=== PATIENT | male | born 1960 | race African-American/Black ===

== ENCOUNTER 2019-08-18 12:05 | Inpatient (IN) | payer BC ==
[2019-08-18] MEDS ORDERED: MORPHINE 4 MG/ML SYR ONE (12:39)
[2019-08-18] MEDS ORDERED: NA CHLORIDE 0.9% 1,000 ML ONE (12:39)
[2019-08-18] MEDS ORDERED: ONDANSETRON 4 MG/2 ML VIAL ONE (12:39)
[2019-08-18 12:42] LABS: Absolute Lymphocytes (CBC) 1.9 K/uL (0.7-4.9); Basophils % 0.4 % (0-1.3); Hematocrit 48.8 % (39.6-49.0); Lymphocytes % 18.9 % (15.3-44.8); MPV 9.6 fL (7.6-11.3); RBC Red Blood Cell Count 5.84 M/uL (4.33-5.43)
--- NOTE | 2019-08-18 12:42 | EDPHYS ---
Physician Documentation [facility] Name: Cecil Merrill Jr Age: 59 yrs Sex: Male : 1960 Arrival Date: 08/18/2019 Time: 12:09 Bed 5 Private MD: Derrick Miles V ED Physician Edis Anglin HPI: 08/17 12:31 This 59 yrs old Black Male presents to ER via Ambulatory with complaints of Chest Pain, torri Chest Tightness. 12:31 The patient or guardian reports chest pain that is located primarily in the anterior torri chest wall, bilaterally. Onset: this morning. The pain does not radiate. Associated signs and symptoms: Pertinent positives: shortness of breath. The chest pain is described as a pressure. Modifying factors: The symptoms are alleviated by nothing. the symptoms are aggravated by nothing. Severity of pain: At its worst the pain was mild in the emergency department the pain has improved mildly. The patient has experienced similar episodes in the past, a few times. Historical: - Allergies: 12:16 No Known Allergies; sv - PMHx: 12:16 Diabetes - NIDDM; Hypertension; Myocardial infarction; sv - PSHx: 12:16 None; cardiac stents; sv - Family history:: not pertinent. ROS: 12:31 Constitutional: Negative for fever, chills, and weight loss, Eyes: Negative for injury, torri pain, redness, and discharge, ENT: Negative for injury, pain, and discharge, Neck: Negative for injury, pain, and swelling, Respiratory: Negative for shortness of breath, cough, wheezing, and pleuritic chest pain, Abdomen/GI: Negative for abdominal pain, nausea, vomiting, diarrhea, and constipation, Back: Negative for injury and pain, : Negative for injury, bleeding, discharge, and swelling, MS/Extremity: Negative for injury and deformity, Skin: Negative for injury, rash, and discoloration, Neuro: Negative for headache, weakness, numbness, tingling, and seizure. 12:31 Cardiovascular: Positive for chest pain. Exam: 12:31 Constitutional: This is a well developed, well nourished patient who is awake, alert, torri and in no acute distress. Head/Face: Normocephalic, atraumatic. Eyes: Pupils equal round and reactive to light, extra-ocular motions intact. Lids and lashes normal. Conjunctiva and sclera are non-icteric and not injected. Cornea within normal limits. Periorbital areas with no swelling, redness, or edema. ENT: Nares patent. No nasal discharge, no septal abnormalities noted. Tympanic membranes are normal and external auditory canals are clear. Oropharynx with no redness, swelling, or masses, exudates, or evidence of obstruction, uvula midline. Mucous membranes moist. Neck: Trachea midline, no thyromegaly or masses palpated, and no cervical lymphadenopathy. Supple, full range of motion without nuchal rigidity, or vertebral point tenderness. No Meningismus. Chest/axilla: Normal chest wall appearance and motion. Nontender with no deformity. No lesions are appreciated. Cardiovascular: Regular rate and rhythm with a normal S1 and S2. No gallops, murmurs, or rubs. Normal PMI, no JVD. No pulse deficits. Respiratory: Lungs have equal breath sounds bilaterally, clear to auscultation and percussion. No rales, rhonchi or wheezes noted. No increased work of breathing, no retractions or nasal flaring. Abdomen/GI: Soft, non-tender, with normal bowel sounds. No distension or tympany. No guarding or rebound. No evidence of tenderness throughout. Back: No spinal tenderness. No costovertebral tenderness. Full range of motion. Male : Normal genitalia with no discharge or lesions. Skin: Warm, dry with normal turgor. Normal color with no rashes, no lesions, and no evidence of cellulitis. MS/ Extremity: Pulses equal, no cyanosis. Neurovascular intact. Full, normal range of motion. Neuro: Awake and alert, GCS 15, oriented to person, place, time, and situation. Cranial nerves II-XII grossly intact. Motor strength 5/5 in all extremities. Sensory grossly intact. Cerebellar exam normal. Normal gait. Psych: Awake, alert, with orientation to person, place and time. Behavior, mood, and affect are within normal limits. Vital Signs: 12:17 BP 198 / 93; Pulse 71; Resp 24; Temp 98.7; Pulse Ox 95% ; Weight 112.04 kg; Height 5 sv ft. 8 in. (172.72 cm); 12:30 BP 180 / 86; Pulse 71; Resp 16; Pulse Ox 97% on 2 lpm NC; Pain 3/10; em 12:17 Body Mass Index 37.56 (112.04 kg, 172.72 cm) sv MDM: 12:18 Patient medically screened. torri 12:37 Data reviewed: vital signs, nurses notes, lab test result(s), EKG, radiologic studies, torri plain films. 12:38 Differential diagnosis: abnormal EKG, acute myocardial infarction, coronary artery torri disease congestive heart failure gastroesophageal reflux disease (GERD), hiatal hernia, myocarditis, pericarditis, unstable angina. HEART Score: History: Highly Suspicious (2), ECG: Significant ST-deviation (2), Age: > 45 and < 65 years (1), Risk Factors: > or = 3 Risk factors for atherosclerotic disease (2), [Hypercholesterolemia] [Hypertension] [+ Family HX] [Obesity] Total Score = 1. 12:58 The patient was not given aspirin in the Emergency Department. Patient reports taking [facility] aspirin within the past 24 hours. The patient's deep vein thrombosis risk score was calculated as follows: Total Score: 0. This patient was found to be at low risk for a deep vein thrombosis by using the Well's assessment criteria. SRIKANTH Risk Score: 1 - Three or more CAD risk factors, [Family Hx], [HTN], [Elevated Cholesterol], [DM], 1- Known CAD, 1 - ASA use in past 7 days, 1 - Recent [<24hrs] Severe Angina, 1 - ST deviation >0.5mm, TOTAL SCORE = 5. 12:59 Data interpreted: product safety technical assistant: rate is 71 beats/min, Pulse oximetry: on room air is torri 95 %. Test interpretation: by ED physician or midlevel provider: ECG, plain radiologic studies. Counseling: I had a detailed discussion with the patient and/or guardian regarding: the historical points, exam findings, and any diagnostic results supporting the discharge/admit diagnosis, the presence of at least one elevated blood pressure reading (>120/80) during this emergency department visit, lab results, radiology results, the need for further work-up and treatment in the hospital. Physician consultation: Darryl Cortez MD regarding admission, to seed analysis laboratory assistant, dr duarte. ED course: presents cp, sob, EKG STEMI, to seed analysis laboratory assistant, asp, Plavix and heparin, lasix and heparin started, gerald mera in ed , no changes, to seed analysis laboratory assistant now m guarded but stable. 08/17 12:27 Order name: Basic Metabolic Panel [facility] 08/17 12:27 Order name: CBC with Diff 08/17 12:27 Order name: LFT's [facility] 08/17 12:27 Order name: Magnesium [facility] 08/17 12:27 Order name: NT PRO-BNP [facility] 08/17 12:27 Order name: PT-INR [facility] 08/17 12:27 Order name: Troponin (emerg Dept Use Only) [facility] 08/17 12:27 Order name: XRAY Chest (1 view) [facility] 08/17 12:27 Order name: EKG; Complete Time: 12:28 [facility] 08/17 12:27 Order name: Cardiac monitoring; Complete Time: 12:35 [facility] 08/17 12:27 Order name: EKG - Nurse/Tech; Complete Time: 12:35 [facility] 08/17 12:27 Order name: IV Saline Lock; Complete Time: 12:35 [facility] 08/17 12:27 Order name: Labs collected and sent; Complete Time: 12:35 [facility] 08/17 12:27 Order name: O2 Per Protocol; Complete Time: 12:35 [facility] 08/17 12:27 Order name: O2 Sat Monitoring; Complete Time: 12:35 [facility] 08/17 12:49 Order name: NPO; Complete Time: 12:57 [facility] 08/17 12:56 Order name: CONS Physician Consult EDMS Administered Medications: 12:31 Drug: Zofran (Ondansetron) 4 mg Route: IVP; Site: right antecubital; em 13:10 Follow up: Response: No adverse reaction em 12:33 Drug: morphine 4 mg Route: IVP; Site: right antecubital; em 12:45 Follow up: Response: No adverse reaction; Marked relief of symptoms; Pain is decreased; em RASS: Alert and Calm (0) 12:43 CANCELLED (Duplicate Order): NS 0.9% 1000 ml IV at 75 ml/hr continuous torri 12:48 CANCELLED (Duplicate Order): Lovenox 1 mg/kg Sub-Q once torri 12:55 Drug: Lasix 40 mg Route: IVP; Site: right antecubital; em 13:10 Follow up: Response: No adverse reaction em 12:57 Drug: Heparin (VT-Bolus No thrombolytic) - HEParin 60 units/kg {Co-Signature: bp (Lito Garcia RN).} Route: IVP; Site: right antecubital; 13:10 Follow up: Response: No adverse reaction em 13:01 Not Given (Physician Discretion): morphine 2 mg IVP once; RASS on ADMIN: Combtv4, Very em Agttd3, Agttd2, Rstlss1, AlertClm0, Drwsy-1, Lt Sdtn-2, Mod Sdtn-3, Dp Sdtn-4, UnArsble-5 13:17 Not Given (seed analysis laboratory assistant stated they would start in seed analysis laboratory assistant): Heparin (VT Drip) 12 em units/kg/hr - (HEParin 40291 units, D5W 500 ml) IV at calculated rate Per protocol; Max initial rate 1000 units/hr Disposition: 12:38 Critical Care:. torri Disposition: 08/18/19 12:42 Hospitalization ordered by Derrick Miles for Inpatient Admission. Preliminary diagnosis are ST elevation (STEMI) myocardial infarction of anterior wall, Type 2 diabetes mellitus, Essential (primary) hypertension, Dyspnea, Systolic (congestive) heart failure. - Bed requested for Property And Supply Officer. - Status is Inpatient Admission. em - Condition is Fair. - Problem is new. - Symptoms have improved. Critical care time excluding procedures: 12:38 Critical care time: Consultation: 10 minutes. Total time: 10 minutes torri Signatures: Dispatcher [employer] Erica Orr RN RN sv Anderson, Corey, MD MD cha Munoz, Edgar, RN RN em Calderon, Audri, RN RN aa5 Lito Garcia RN bp Corrections: (The following items were deleted from the chart) 12:43 12:30 NS 0.9% 1000 ml IV at 75 ml/hr continuous ordered. torri torri 12:45 12:42 Hospitalization Ordered by Derrick Miles MD for Inpatient Admission. Preliminary torri diagnosis is ST elevation (STEMI) myocardial infarction of anterior wall; Type 2 diabetes mellitus; Essential (primary) hypertension; Dyspnea. Bed requested for Property And Supply Officer. Status is Inpatient Admission. Condition is Fair. Problem is new. Symptoms have improved. torri 12:48 12:31 Lovenox 1 mg/kg Sub-Q once ordered. torri torri 13:19 12:45 08/18/2019 12:42 Hospitalization Ordered by Derrick Miles MD for Inpatient em Admission. Preliminary diagnosis is ST elevation (STEMI) myocardial infarction of anterior wall; Type 2 diabetes mellitus; Essential (primary) hypertension; Dyspnea; Systolic (congestive) heart failure. Bed requested for Property And Supply Officer. Status is Inpatient Admission. Condition is Fair. Problem is new. Symptoms have improved. torri
--- NOTE | 2019-08-18 12:42 | ER ---
Nurse's Notes [facility] Name: Cecil Merrill Jr Age: 59 yrs Sex: Male : 1960 Arrival Date: 08/18/2019 Time: 12:09 Bed 5 Private MD: Derrick Miles V Diagnosis: ST elevation (STEMI) myocardial infarction of anterior wall;Type 2 diabetes mellitus;Essential (primary) hypertension;Dyspnea;Systolic (congestive) heart failure Presentation: 08/17 12:14 Chief complaint: Patient states: midsternal chest pain, SOB, HTN today. "I felt like a sv anderson of adrenaline hit me.". Risk Assessment: Do you want to hurt yourself or someone else? Patient reports no desire to harm self or others. Onset of symptoms was August 18, 2019. 12:14 Method Of Arrival: Ambulatory sv 12:14 Acuity: KIMBER 2 sv Triage Assessment: 12:20 General: Appears distressed, uncomfortable, Behavior is cooperative, appropriate for sv age, anxious. Pain: Complains of pain in chest. Neuro: Level of Consciousness is awake, alert, obeys commands, Oriented to person, place, time, situation, Gait is steady. Cardiovascular: Reports chest pain, shortness of breath. Respiratory: Airway is patent Respiratory effort is even, labored, Respiratory pattern is symmetrical, tachypnea. Historical: - Allergies: 12:16 No Known Allergies; sv - PMHx: 12:16 Diabetes - NIDDM; Hypertension; Myocardial infarction; sv - PSHx: 12:16 None; cardiac stents; sv - Family history:: not pertinent. Screenin:25 Abuse screen: Denies threats or abuse. Nutritional screening: No deficits noted. em Tuberculosis screening: No symptoms or risk factors identified. Fall Risk None identified. Assessment: 12:25 General: Appears in no apparent distress. uncomfortable, Behavior is calm, cooperative, em appropriate for age, Denies fever. Pain: Complains of pain in chest Pain does not radiate. Pain began 0200 this morning, felt like indigestion, tried to sleep it off, took 4 baby aspirins ETIOLOGY TEACHER, denies nausea/vomiting. Neuro: Level of Consciousness is awake, alert, obeys commands, Oriented to person, place, time, situation, Appropriate for age. Cardiovascular: Reports chest pain, shortness of breath, Heart tones S1 S2 present Capillary refill < 3 seconds Patient's skin is warm and dry. Pulses are palpable in right dorsalis pedis artery and left dorsalis pedis artery Edema is absent. Respiratory: Airway is patent Respiratory effort is even, unlabored, Respiratory pattern is regular, symmetrical, Denies shortness of breath at rest. GI: Abdomen is round non-distended, Patient currently denies nausea, vomiting. Derm: Skin is intact, Skin is pink, warm \\T\\ dry. Musculoskeletal: Capillary refill < 3 seconds, Range of motion: intact in all extremities. 12:55 Reassessment: transmission inspector at bedside. em Vital Signs: 12:17 BP 198 / 93; Pulse 71; Resp 24; Temp 98.7; Pulse Ox 95% ; Weight 112.04 kg; Height 5 sv ft. 8 in. (172.72 cm); 12:30 BP 180 / 86; Pulse 71; Resp 16; Pulse Ox 97% on 2 lpm NC; Pain 3/10; em 12:17 Body Mass Index 37.56 (112.04 kg, 172.72 cm) sv ED Course: 12:09 Patient arrived in ED. ag5 12:09 Derrick Miles MD is Private Physician. ag5 12:14 Arm band placed on Patient placed in an exam room, on a stretcher, on oxygen, on sv laboratory monitor, on pulse oximetry. 12:15 Oxygen administration via nasal cannula \\T\\ 2L/min. sv 12:16 Triage completed. sv 12:18 Samir Adan, TREY is Primary Nurse. em 12:18 Edis Anglin MD is Attending Physician. torri 12:20 Inserted saline lock: 18 gauge in right antecubital area, using aseptic technique. sv Blood collected. Flushed right antecubital with 5 ml normal saline. 12:25 Patient has correct armband on for positive identification. Placed in gown. Bed in low em position. Call light in reach. Side rails up X2. hall monitor on. Pulse ox on. NIBP on. 12:36 XRAY Chest (1 view) In Process Unspecified. EDMS 12:41 Derrick Miles MD is Hospitalizing Provider. torri 13:15 No provider procedures requiring assistance completed. Patient admitted, IV remains in em place. Administered Medications: 12:31 Drug: Zofran (Ondansetron) 4 mg Route: IVP; Site: right antecubital; em 13:10 Follow up: Response: No adverse reaction em 12:33 Drug: morphine 4 mg Route: IVP; Site: right antecubital; em 12:45 Follow up: Response: No adverse reaction; Marked relief of symptoms; Pain is decreased; em RASS: Alert and Calm (0) 12:43 CANCELLED (Duplicate Order): NS 0.9% 1000 ml IV at 75 ml/hr continuous torri 12:48 CANCELLED (Duplicate Order): Lovenox 1 mg/kg Sub-Q once torri 12:55 Drug: Lasix 40 mg Route: IVP; Site: right antecubital; em 13:10 Follow up: Response: No adverse reaction em 12:57 Drug: Heparin (ME-Bolus No thrombolytic) - HEParin 60 units/kg {Co-Signature: bp (Lito Garcia RN).} Route: IVP; Site: right antecubital; 13:10 Follow up: Response: No adverse reaction em 13:01 Not Given (Physician Discretion): morphine 2 mg IVP once; RASS on ADMIN: Combtv4, Very em Agttd3, Agttd2, Rstlss1, AlertClm0, Drwsy-1, Lt Sdtn-2, Mod Sdtn-3, Dp Sdtn-4, UnArsble-5 13:17 Not Given (laborer egg producing farm stated they would start in laborer egg producing farm): Heparin (ME Drip) 12 em units/kg/hr - (HEParin 76233 units, D5W 500 ml) IV at calculated rate Per protocol; Max initial rate 1000 units/hr Outcome: 12:42 Decision to Hospitalize by Provider. torri 13:15 Admitted to Management Specialist accompanied by nurse, via stretcher, with oxygen, on monitor, with em chart, Report called to TREY Austin 13:15 Condition: stable 13:15 Instructed on the need for admit, Demonstrated understanding of instructions. 13:19 Patient left the ED. em Signatures: Dispatcher [employer] Erica Orr RN RN sv Anderson, Corey, MD MD cha Munoz, Edgar, RN RN em Yelitza Murillo ag5 Lito Garcia RN bp
[2019-08-18] MEDS ORDERED: ENOXAPARIN 100 MG/ML SYR SQ ONE (12:47)
[2019-08-18 12:48] LABS: Protime INR 0.91
--- NOTE | 2019-08-18 12:51 | RAD REPORT ---
EXAM DESCRIPTION: RAD - Chest Single View - 08/18/2019 12:36 pm CLINICAL HISTORY: CHEST PAIN Chest pain. COMPARISON: CHEST SINGLE VIEW dated 01/16/2014; CHEST SINGLE VIEW dated 01/15/2014 FINDINGS: Portable technique limits examination quality. Mild interstitial prominence is seen which may indicate mild interstitial pulmonary edema or intersti tial pneumonitis. The heart is normal in size. No displaced fractures.
[2019-08-18] MEDS ORDERED: HEPARIN 5000 UNIT/ML 1 ML VIAL ONE ×2 (12:57→13:29)
[2019-08-18] MEDS ORDERED: HEPARIN/D5W 0 UNIT/0 ML BAG IV ONE (12:57)
[2019-08-18] MEDS ORDERED: FUROSEMIDE 40 MG/4 ML VIAL ONE (12:57)
[2019-08-18] MEDS ORDERED: FENTANYL CITR 100 MCG/2 ML ONE (13:00)
[2019-08-18] MEDS ORDERED: NITROGLYCERIN 100 MCG/ML SYR (for cath lab use only) IV ONE (13:00)
[2019-08-18] MEDS ORDERED: HEPA 1000U/500MLS 2,000 UNIT/1,000 ML BAG IV ONE (13:00)
[2019-08-18] MEDS ORDERED: ATROPINE SULF 1 MG/10 ML SYR IV ONE (13:00)
[2019-08-18] MEDS ORDERED: LIDOCAINE 1% MPF 30 ML VIAL ONE (13:00)
[2019-08-18] MEDS ORDERED: NITROGLYCERIN/D5W 0 MG/0 ML BTL IV ONE (13:00)
[2019-08-18] MEDS ORDERED: MIDAZOLAM HCL 2 MG/2 ML INJ ONE (13:00)
[2019-08-18 13:04] LABS: Albumin 3.3 g/dL (3.4-5.0); Bilirubin Direct 0.1 mg/dL (0-0.2); Bilirubin Total 0.4 mg/dL (0.2-1.0); Magnesium 2.2 mg/dL (1.8-2.4); Potassium 3.3 mmol/L (3.5-5.1); Protein, Total 7.8 g/dL (6.4-8.2); Troponin (Emerg Dept Use Only) 0.14 ng/mL (0.0-0.045)
[2019-08-18] MEDS ORDERED: NICARDIPINE HCL 25 MG/10 ML IV ONE (13:29)
[2019-08-18] MEDS ORDERED: NA CHLORIDE 0.9% 0 ML ONE (13:37)
[2019-08-18] MEDS ORDERED: ONDANSETRON 4 MG/2 ML VIAL IV PRN (14:01)
[2019-08-18] MEDS ORDERED: HEPARIN/D5W 25,000 UNIT/500 ML BAG IV PRN (14:01)
[2019-08-18] MEDS ORDERED: MORPHINE 4 MG/ML SYR IV PRN (14:01)
[2019-08-18] MEDS ORDERED: ACETAMINOPHEN 325 MG TABLET PO PRN (14:08)
[2019-08-18 15:16] VITALS: BMI 37.6
[2019-08-18] MEDS: FUROSEMIDE 40 MG/4 ML VIAL IV SCH (17:00)
[2019-08-18] MEDS ORDERED: D50W 25 GM/50 ML SYRINGE/VIAL IV PRN (17:03)
[2019-08-18] MEDS: METOPROLOL TAR 25 MG TAB PO SCH (17:24)
[2019-08-18] MEDS ORDERED: NITROGLYCERIN 1 GM PKT TD SCH (18:00)
[2019-08-18] MEDS: NEBIVOLOL HCL 20 MG TABLET PO SCH (20:47)
[2019-08-18] MEDS ORDERED: ASPIRIN EC 81 MG TAB PO SCH (21:00)
[2019-08-18] MEDS ORDERED: CLOPIDOGREL 75 MG TABLET PO SCH (21:00)
[2019-08-18] MEDS ORDERED: LOSARTAN POTASSIUM 50 MG TABLET PO SCH (21:00)
[2019-08-19] MEDS: FUROSEMIDE 40 MG/4 ML VIAL IV SCH ×2 (00:42→08:50)
[2019-08-19] MEDS: METOPROLOL TAR 25 MG TAB PO SCH (05:12)
[2019-08-19 05:39] LABS: Absolute Lymphocytes (CBC) 1.3 K/uL (0.7-4.9); Basophils % 0.4 % (0-1.3); Hematocrit 45.3 % (39.6-49.0); Lymphocytes % 15.4 % (15.3-44.8); MPV 10.2 fL (7.6-11.3); RBC Red Blood Cell Count 5.48 M/uL (4.33-5.43)
[2019-08-19 05:53] LABS: Potassium 2.9 mmol/L (3.5-5.1)
[2019-08-19] MEDS ORDERED: POTASSIUM CL SA 10 MEQ TAB PO ONE (06:30)
[2019-08-19] MEDS ORDERED: NA CHLORIDE 0.9% 250 ML ONE (06:49)
[2019-08-19] MEDS ORDERED: KCL 20 MEQ/100 mL IVPB 20 MEQ/100 ML BAG IV SCH (07:00)
[2019-08-19] MEDS: NEBIVOLOL HCL 20 MG TABLET PO SCH (08:51)
[2019-08-19] MEDS ORDERED: AMLODIPINE 10 MG TAB PO SCH (09:00)
[2019-08-19] MEDS ORDERED: SYNJARDY PO SCH (09:00)
[2019-08-19] MEDS ORDERED: CLOPIDOGREL 75 MG TABLET PO SCH (09:00)
[2019-08-19] MEDS ORDERED: ASPIRIN EC 81 MG TAB PO SCH (09:00)
--- NOTE | 2019-08-19 09:01 | RAD REPORT ---
EXAM DESCRIPTION: Yuliet Single View08/19/2019 6:47 am CLINICAL HISTORY: Chest pain COMPARISON: August 17 FINDINGS: Mild bilateral pulmonary opacities have resolved. The heart is normal size IMPRESSION: No acute abnormalities displayed
[2019-08-19 11:38] VITALS: O2SAT 97
[2019-08-19 15:21] VITALS: BP 129/67; TEMP 98.4
[2019-08-19] MEDS ORDERED: POTASSIUM CL SA 10 MEQ TAB PO SCH (21:00)
--- NOTE | 2019-08-19 23:07 | HP ---
Date of Admission: 08/18/2019 This is a 23-hour summary. Chief Complaint: Shortness of breath. History Of Present Illness: Patient is 59-year-old gentleman with diabetes, morbid obesity, high blo od pressure, recurrent coronary artery disease with a stent placement in 2013, comes in with worsenin g shortness of breath over the last 3-4 days. He has not been eating properly. He eats whatever he gets at store down which could be any of the fast food or junk food including [place] food or Beninese fries or pizzas. All these foods are going to give him heavy salt load with 1 serving and he may end up in heart failure. He understands this very well now and hopefully will try to eat properly. I radha hassan been advising him to eat properly for the last few years. He ends up in hospital with worsening shortness of breath and PND for last 3-4 days. He has some chest heaviness. Troponin was slightly h igh. He was taken for an ordered angiogram, which was negative for any new findings. He had a stent in 1 artery, LAD which is patent. Past Medical History: As described above. Surgical History: Stent in the past 2013. Family History: High blood pressure, diabetes, CVA and some cancer of unknown origin, he is not awar e of. Social History: Nonsmoker Medications: Listed medications are amlodipine 10 mg once a day, Atorvastatin 40 mg once a day, Byst olic 20 mg once a day, Plavix 75 mg once a day. He is on Humalog sliding scale. He is on Synjardy 1 2.5-1000 XR once a day, Toujeo insulin 40 units subcu b.i.d. Physical Examination: Vital Signs: His blood pressure is 150/80. Chest: Clear. Heart: Regular. Abdomen: No guarding, no rebound, no rigidity. He is moderately obese. Extremities: No signs of edema now day after receiving Lasix IV. Laboratory Data: On lab examination, I do not have an access to the computer right now from the [place] [employer] is malfunctioning for last 24 hours at my office and home, so lab examination noted akua elizabeth he was in the hospital do not have exact numbers currently. Assessment And Plannin.Diastolic congestive heart failure. Echocardiogram to be done today. He is stable enough to be d ischarged home. He will be discharged home on Lasix 40 mg once a day. Potassium 20 mEq once a day. He is already on a small dose of diuretic with losartan, which I will continue. 2.He has some anxiety. Also, he says was having anxiety last night and wakes him up. Put him on Zo loft 25 mg once a day for anxiety. 3.Diabetes. He comes to office every 3 months for a followup on diabetes. His visit is about overd ue for last week or so. When he comes out of hospital, he will be seen in office within a week via t [facility]. ANOOP/ALBERTO Voice ID: [id number]
[2019-08-20] MEDS ORDERED: FUROSEMIDE 40 MG/4 ML VIAL IV SCH (09:00)
--- NOTE | 2019-08-20 13:13 | EKG ---
Test Date: 2019-08-18 Test Time: 12:24:36 Social Service Director: WEI MEASUREMENT RESULTS: Intervals: Rate: 73 MO: 140 QRSD: 86 QT: 430 QTc: 473 Bradford: P: 61 MO: 140 QRS: -34 T: 206 INTERPRETIVE STATEMENTS: Normal sinus rhythm Possible Left atrial enlargement Left axis deviation Left ventricular hypertrophy with repolarization abnormality Abnormal ECG Compared to ECG 01/17/2014 07:28:19 Left ventricular hypertrophy now present Early repolarization now present Electronically Signed On 08-20-19 13:13:28 CDT by Darryl Cortez
--- NOTE | 2019-08-21 10:03 | ECHO ---
HEIGHT: 5 ft 8 in WEIGHT: 247 lb 8 oz DATE OF STUDY: 08/19/[address]: Darryl Cortez MD 2-DIMENSIONAL: YES M.MODE: YES DOPPLER: YES COLOR FLOW: YES TDS: PORTABLE: DEFINITY: BUBBLE STUDY: DIAGNOSIS: ANTERIOR MYOCARDIAL INFARCTION, CONGESTIVE HEART FAILURE CARDIAC HISTORY: CATHERIZATION: YES SURGERY: NO PROSTHETIC VALVE: NO PACEMAKER: NO MEASUREMENTS (cm) DIASTOLIC (NORMALS) SYSTOLIC (NORMALS) IVSd 1.4 (0.6-1.2) LA Diam 4.0 (1.9-4.0) LVEF 63% LVIDd 4.7 (3.5-5.7) LVIDs 3.1 (2.0-3.5) %FS 34% LVPWd 1.7 (0.6-1.2) Ao Diam 2.7 (2.0-3.7) 2 DIMENSIONAL ASSESSMENT: RIGHT ATRIUM: NORMAL LEFT ATRIUM: ENLARGED RIGHT VENTRICLE: NORMAL LEFT VENTRICLE: MODERATE CONCENTRIC LEFT VENTRICULAR HYPERTROPHY TRICUSPID VALVE: NORMAL MITRAL VALVE: NORMAL PULMONIC VALVE: NORMAL AORTIC VALVE: NORMAL PERICARDIAL EFFUSION: AORTIC ROOT: NORMAL LEFT VENTRICULAR WALL MOTION: NORMAL LEFT VENTRICULAR EJECTION FRACTION 55-60 %. SIGNIFICANT DIASTOLIC DYSFUNCTION. ELEVATED FILLING PRESSURE. DOPPLER/COLOR FLOW: COMMENTS: NORMAL LEFT VENTRICULAR EJECTION FRACTION 55-60%. SIGNIFICANT LEFT VENTRICULAR DIASTOLIC DYSFUNCTION. ELEVATED LEFT FILLING PRESSURE. MODERATE CONCENTRIC LEFT VENTRICULAR HYPERTROPHY. TECHNOLOGIST: DEXTER SHAW
--- NOTE | 2019-08-22 20:42 | CON ---
Date of Consultation: 08/18/2019 Chief Complaint: Chest pain. History Of Present Illness: 59-year-old male with history of diabetes; hypertension; coronary artery disease, status post LAD stent placement; who presented to the emergency room with crushing chest pa in, left sided, while he was shopping at [employer]. Pain is severe, going to his neck and uppe r extremities and felt severely shortness of breath that he could not keep walking, so he went home, tried to rest, although did not get well, so he presented to the emergency room. In the emergency ro om, he had an EKG that was concerning for possible acute ST elevation myocardial infarction. I was n otified and saw the patient immediately in the emergency room and decided to activate the open hearth furnace laborer to perform emergent coronary angiogram. I saw the patient by bedside and appeared to be uncomfortable due to shortness of breath; however, the chest pain has completely resolved by that time. Past Medical History: As mentioned in the HPI. Medications: Refer reconciliation sheet for detailed list. Allergies: NO KNOWN DRUG ALLERGIES. Social History: He does not smoke or drink. Does not use any drugs. Family History: No premature coronary artery disease or cancer. Past Surgical History: He had a cardiac stent placement to the LAD few years back. Review of Systems: All systems reviewed. They were negative except above mentioned in HPI. Physical Examination: Vital Signs: Blood pressure was 174/80, breathing at 22 breaths per minute, satting 96% with 2 L, he art rate was 75 beats per minute. General: This is a middle aged, obese male in no apparent distress. Head and Neck: Pupils are equal and reactive to light. Intact eye movements. Positive JVD elevatio n. No cervical lymphadenopathy. Neck is supple. Thyroid is not enlarged. Lungs: Crackles in both bases. No accessory muscle use or muscle retraction. Heart: Regular rate and rhythm with audible S3. Abdomen: Soft, nontender. Bowel sounds positive. No organomegaly . Extremities: No edema, clubbing, or cyanosis. Intact pulses. Skin: No rashes or lesions. Neurologic: Alert, awake, oriented x3. No acute focal deficit appreciated. Investigations: Troponin was 0.14. Potassium 3.3, creatinine is 1.24. Chest x-ray; pulmonary edema. EKG; slight elevation of ST segment in the lead V1 and V2 with LVH and abnormality. Assessment And Plan And Recommendations: 1.Acute chest pain with dynamic EKG changes and elevated troponin and acute heart failure. __ the open hearth furnace laborer for emergent coronary angiogram and concerns for ST elevation myocardial infarction. Continue IV heparin, Plavix, and aspirin and start the patient on nitroglycerin drip for better bloo d pressure control. 2.Acute congestive heart failure. Obtain an echocardiogram and control blood pressure with IV nitro glycerin and start IV Lasix. 3.Hypertensive crisis with acute heart failure. This could be part of his presentation as main etio logy and can recommend management of this hypertensive crisis with IV nitroglycerin and will observe the patient closely in ICU post cardiac catheterization. Thank you for the consultation. /ALBERTO Voice ID: [id number] Report ID: [id number]
== END 2019-08-19 14:50 | disposition home or self-care (01) | DRG 280 ==
LOC: ER 12:05 → ERHOLD 12:52 → 3RD-ICU 14:18
PROVIDERS: ADMIT Internal Medicine; ATTEND Internal Medicine
PROC: 4A023N7 Measurement of Cardiac Sampling and Pressure, Left Heart, Percutaneous Approach (ICD-10-PCS; principal; 2019-08-18)
PROC: B2111ZZ Fluoroscopy of Multiple Coronary Arteries using Low Osmolar Contrast (ICD-10-PCS; 2019-08-18)
PROC: B2151ZZ Fluoroscopy of Left Heart using Low Osmolar Contrast (ICD-10-PCS; 2019-08-18)
DX: I21.09 ST elevation (STEMI) myocardial infarction involving other coronary artery of anterior wall (principal); I50.31 Acute diastolic (congestive) heart failure; I16.9 Hypertensive crisis, unspecified; E11.9 Type 2 diabetes mellitus without complications; Z68.37 Body mass index [BMI] 37.0-37.9, adult; I25.10 Atherosclerotic heart disease of native coronary artery without angina pectoris; Z95.5 Presence of coronary angioplasty implant and graft; Z79.4 Long term (current) use of insulin; Z79.02 Long term (current) use of antithrombotics/antiplatelets; Z79.899 Other long term (current) drug therapy; F41.9 Anxiety disorder, unspecified; I25.2 Old myocardial infarction; I11.0 Hypertensive heart disease with heart failure; E66.01 Morbid (severe) obesity due to excess calories
CPT/HCPCS: 36415; 71045; 80048; 80076; 82947; 83735; 83880; 84132; 84484; 85025; 85610; 93005; 93306; 93458; 96374; 96375; 99285; C1893; J0583; J1644; J1650; J1940; J2250; J2405; J3010; J7030

== ENCOUNTER 2020-04-14 23:55 | Observation (INO) | payer BC ==
--- OUTSIDE RECORDS SUMMARY | 2020-04-14 23:58 | XMS REPORT | Clinical Summary ---
:1960 Author Organization [facility] Address [address] [place] [address] Care Team Providers Name Role Phone Derrick Miles MD Primary Care Provider Allergies No Known Active Allergies Medications Medication Sig Dispensed Refills Start Date End Date Status amLODIPine (NORVASC) Take 10 mg by 1 12/29/2016 Active 10 mg tablet mouth once daily. atorvastatin (LIPITOR) 0 01/19/2017 Active 40 MG tablet clopidogrel (PLAVIX) 0 01/19/2017 Active 75 mg tablet glimepiride (AMARYL) 4 Take 4 mg by mouth 0 10/30/19 17 Active MG tablet once daily. TOUJEO SOLOSTAR 300 INJECT UNDER THE 2 11/05/2016 Active unit/mL (1.5 mL) SKIN 54 UNITS insulin pen BEFORE SLEEP OR IN THE MORNING BEFORE BREAKFAST HUMALOG KWIKPEN 100 INJECT UNDER THE 5 12/29/2016 Active unit/mL injection pen SKIN 10 UNITS 10 MINUTES BEFORE MEALS losartan-hydrochloroth Take 1 tablet by 0 01/16/2017 Active iazide (HYZAAR) mouth once daily. 100-12.5 mg per tablet metoprolol succinate Take 200 mg by 2 12/29/2016 Active XL (TOPROL-XL) 200 mg mouth once daily. 24 hr tablet Active Problems No known active problems Surgical History Surgery Date Site/Laterality Comments CARDIAC SURGERY Medical History Medical History Date Comments Coronary artery disease Myocardial infarction (HCC) Diabetes mellitus (HCC) Hypertension Family History Medical History Relation Name Comments Cancer Father Brian Diabetes Father Brian Relation Name Status Comments Father Brian Social History Tobacco Use Types Packs/Day Years Used Date Never Smoker Alcohol Use Drinks/Week oz/Week Comments No Sex Assigned at Date Recorded Not on file Last Filed Vital Signs Not on file Plan of Treatment Health Maintenance Due Date Last Done Comments COVID-19 VACCINE (#1) 1978 COLONOSCOPY SCREENING 2012 SHINGLES VACCINES (#1) 2012 INFLUENZA VACCINE 11/18/2019 Results Not on fileafter 04/14/2019 Guarantor Name Account Type Relation to Date of Phone Bill ing Patient Address Cecil Merrill Personal/Family Self 1960 [address] ([address]) [place] [address] Advance Directives For more information, please contact: [phone] Type Date Recorded Patient Psychodramatist Explanati on Advance Directives, Living Will and Medical Power of Advertising Supervisor
[2020-04-15 01:11] LABS: Absolute Lymphocytes (CBC) 1.8 K/uL (0.7-4.9); Basophils % 2.2 % (0-1.3); Hematocrit 48.5 % (39.6-49.0); Lymphocytes % 23.8 % (15.3-44.8); MPV 9.9 fL (7.6-11.3); RBC Red Blood Cell Count 5.82 M/uL (4.33-5.43)
[2020-04-15 01:12] LABS: Protime INR 0.88
[2020-04-15 01:44] LABS: ALT/SGPT 55 U/L (12-78); AST/SGOT 53 U/L (15-37); Albumin 2.9 g/dL (3.4-5.0); Alkaline Phosphatase 96 U/L (45-117); BUN Blood Urea Nitrogen 18 mg/dL (7-18); Bicarbonate 28 mmol/L (21-32); Bilirubin Direct < 0.1 mg/dL (0-0.2); Bilirubin Total 0.3 mg/dL (0.2-1.0); CKMB Creatine Kinase MB 6.5 ng/mL (0.3-3.6); Creatine Phosphokinase 278 U/L (39-308); Glucose Level 182 mg/dL (74-106); Lipase 223 U/L (73-393); Magnesium 2.5 mg/dL (1.8-2.4); NT PRO-BNP 2268 pg/mL (<125); Potassium 3.8 mmol/L (3.5-5.1); Protein, Total 7.6 g/dL (6.4-8.2); Sodium Level 141 mmol/L (136-145); Troponin (Emerg Dept Use Only) 0.13 ng/mL (0.0-0.045)
[2020-04-15 02:34] LABS: Urine Blood 2+ (NEG); Urine Glucose 2+ (NEG); Urine Protein 3+ (NEG); Urine pH 7.5 (5.0-7.0)
--- NOTE | 2020-04-15 05:34 | EDPHYS ---
Physician Documentation [facility] Name: Cecil Merrill Jr Age: 59 yrs Sex: Male : 1960 Arrival Date: 04/14/2020 Time: 23:56 Bed 4 Private MD: Derrick Miles V ED Physician Abhijeet Beauchamp HPI: 04/15 01:07 This 59 yrs old Black Male presents to ER via Ambulatory with complaints of Shortness tw4 Of Breath. 01:07 The patient has shortness of breath at rest. Onset: The symptoms/episode began/occurred tw4 today. Duration: The symptoms are intermittent. The patient's shortness of breath has no apparent modifying factors. Associated signs and symptoms: Pertinent positives: chest pain, Pertinent negatives:. Severity of symptoms: At their worst the symptoms were moderate in the emergency department the symptoms have resolved. The patient has not experienced similar symptoms in the past. Historical: - Allergies: 00:30 No Known Allergies; dm5 - PMHx: 06:18 Myocardial infarction; Hypertension; Diabetes - NIDDM; ea - PSHx: 06:18 cardiac stents; ea - Immunization history:: Adult Immunizations up to date. - Social history:: Smoking status: unknown. ROS: 01:07 Constitutional: Negative for fever, chills, and weight loss, Eyes: Negative for injury, tw4 pain, redness, and discharge, Cardiovascular: Negative for chest pain, palpitations, and edema, Abdomen/GI: Negative for abdominal pain, nausea, vomiting, diarrhea, and constipation, Back: Negative for injury and pain, MS/Extremity: Negative for injury and deformity, Skin: Negative for injury, rash, and discoloration, Neuro: Negative for headache, weakness, numbness, tingling, and seizure. 01:07 Respiratory: Positive for shortness of breath, Negative for cough, dyspnea on exertion, hemoptysis, orthopnea, pleurisy. Exam: 01:07 Constitutional: This is a well developed, well nourished patient who is awake, alert, tw4 and in no acute distress. Head/Face: Normocephalic, atraumatic. Chest/axilla: Normal chest wall appearance and motion. Nontender with no deformity. No lesions are appreciated. Cardiovascular: Regular rate and rhythm with a normal S1 and S2. No gallops, murmurs, or rubs. Normal PMI, no JVD. No pulse deficits. Respiratory: Lungs have equal breath sounds bilaterally, clear to auscultation and percussion. No rales, rhonchi or wheezes noted. No increased work of breathing, no retractions or nasal flaring. Abdomen/GI: Soft, non-tender, with normal bowel sounds. No distension or tympany. No guarding or rebound. No evidence of tenderness throughout. Skin: Warm, dry with normal turgor. Normal color with no rashes, no lesions, and no evidence of cellulitis. MS/ Extremity: Pulses equal, no cyanosis. Neurovascular intact. Full, normal range of motion. Neuro: Awake and alert, GCS 15, oriented to person, place, time, and situation. Cranial nerves II-XII grossly intact. Motor strength 5/5 in all extremities. Sensory grossly intact. Cerebellar exam normal. Normal gait. Vital Signs: 00:43 BP 213 / 99; Pulse 71; Resp 19; Pulse Ox 97% on R/A; ea 01:18 BP 167 / 86; Pulse 66; Resp 18; Pulse Ox 99% ; ea 02:32 BP 177 / 105; Pulse 86; Resp 18; Pulse Ox 98% on R/A; ea 02:53 Temp 97.9; ea 04:38 BP 165 / 89; Pulse 66; Resp 18; Pulse Ox 97% on R/A; ea 05:13 BP 149 / 82; Pulse 64; Resp 18; Pulse Ox 98% on R/A; ea 07:54 BP 149 / 73; Pulse 62; Resp 22; Pulse Ox 95% ; sv 11:00 Weight 112 kg; Height 5 ft. 8 in. (172.72 cm); sv 11:00 Body Mass Index 37.54 (112.00 kg, 172.72 cm) sv MDM: 00:14 Patient medically screened. tw4 01:09 Differential diagnosis: Anemia Anxiety Reaction CHF exacerbation, reactive airway tw4 disease, Unstable Angina. Antibiotic administration: Not indicated. Data reviewed: vital signs, nurses notes. Counseling: I had a detailed discussion with the patient and/or guardian regarding: the historical points, exam findings, and any diagnostic results supporting the discharge/admit diagnosis, radiology results. 05:33 Physician consultation: Derrick Miles MD regarding admission, to the telemetry unit. tw4 patient's condition, and will see patient in inpatient room. Special discussion:. 04/15 00:09 Order name: Blood Culture Adult (2) 04/15 00:09 Order name: BMP; Complete Time: 02:50 04/15 02:51 Interpretation: Normal except: CL 108; GFR 59; CRE 1.48; GLUC 182. 04/15 00:09 Order name: CBC with Diff; Complete Time: :04/15 01:29 Interpretation: Normal except: RDW 15.5; MCH 26.7; RBC 5.82. 04/15 00:09 Order name: Ckmb; Complete Time: 02:50 04/15 02:51 Interpretation: Normal except: CKMB 6.5. 04/15 00:09 Order name: CPK; Complete Time: 02:50 04/15 02:52 Interpretation: Within normal limits: CPK 278. 04/15 00:09 Order name: D-Dimer; Complete Time: :04/15 01:29 Interpretation: Normal except: D-DIMER 869. 04/15 00:09 Order name: Hepatic Function; Complete Time: 02:50 04/15 02:51 Interpretation: Normal except: AST 53; ALB 2.9; A/G 0.6; GLOB 4.7. 04/15 00:09 Order name: Lipase; Complete Time: 02:50 04/15 02:52 Interpretation: Within normal limits: LIP 223. 04/15 00:09 Order name: Magnesium; Complete Time: 02:50 04/15 02:51 Interpretation: Abnormal: MG 2.5. 04/15 00:09 Order name: NT PRO-BNP; Complete Time: 02:50 04/15 02:51 Interpretation: Abnormal: NT PRO-BNP 2268. 04/15 00:09 Order name: PT-INR; Complete Time: :04/15 01:29 Interpretation: Within normal limits: PT 10.4. 04/15 00:09 Order name: Ptt, Activated; Complete Time: :04/15 01:30 Interpretation: Within normal limits: PTT 29.7. 04/15 00:09 Order name: Troponin (emerg Dept Use Only); Complete Time: 02:50 tw4 04/15 02:51 Interpretation: Abnormal: TROPED 0.13. tw4 04/15 00:40 Order name: Urine Dipstick--Ancillary (enter results); Complete Time: 02:50 tt3 04/15 02:52 Interpretation: Normal except: UBLD 2+; UPH 7.5; UPROT 3+. tw4 04/15 00:09 Order name: EKG; Complete Time: 00:11 tw4 04/15 00:09 Order name: Cardiac monitoring; Complete Time: 00:54 tw4 04/15 00:09 Order name: EKG - Nurse/Tech; Complete Time: 00:55 tw4 04/15 00:09 Order name: IV Saline Lock; Complete Time: 00:55 tw4 04/15 00:09 Order name: Labs collected and sent; Complete Time: 00:55 tw4 04/15 01:29 Order name: CT Chest For PE Angio dm5 04/15 02:00 Order name: XRAY Chest (1 view) 04/15 02:55 Order name: COVID-19 [facility] 04/15 05:21 Order name: SARS-COV-2 RT PCR; Complete Time: 05:32 EDMS 04/15 08:19 Order name: Consistent Carb (ADA) 1800 Nj EDWI 04/15 08:19 Order name: CKMB Creatine Kinase MB EDWI 04/15 08:20 Order name: Creatine Phosphokinase EDWI 04/15 08:20 Order name: Troponin I EDWI 04/15 08:59 Order name: CKMB Creatine Kinase MB EDWI 04/15 10:41 Order name: Glucose, Ancillary Testing EDWI 04/15 00:09 Order name: O2 Per Protocol; Complete Time: 00:55 tw4 04/15 00:09 Order name: O2 Sat Monitoring; Complete Time: 00:55 tw4 EC:07 Rate is 75 beats/min. Rhythm is regular. QRS [place] is Normal. MD interval is normal. QRS tw4 interval is normal. QT interval is normal. No Q waves. T waves are Inverted in leads V4, V5, V6. No ST changes noted. Clinical impression: NSR w/ Non-specific ST/T Changes. Interpreted by me. Reviewed by me. Administered Medications: No medications were administered Disposition: 04/15/20 05:33 Hospitalization ordered by Derrick Miles for Inpatient Admission. Preliminary diagnosis are Unspecified combined systolic (congestive) and diastolic (congestive) heart failure, Chest pain, unspecified. - Bed requested for Telemetry/MedSurg (Inpatient). - Status is Inpatient Admission. ss - Condition is Stable. - Problem is new. - Symptoms have improved. Signatures: Dispatcher [employer] [facility] Cheli Gonzalez RN RN dm5 Lissy Del Toro RN RN Brooklynn Richards, Abhijeet Valladares RN, ea, MD MD tw4 Peggy Gómez Corrections: (The following items were deleted from the chart) 04:17 02:56 CORONAVIRUS ordered. [facility] 09:55 05:33 Hospitalization Ordered by Derrick Miles MD for Inpatient Admission. Preliminary ss diagnosis is Unspecified combined systolic (congestive) and diastolic (congestive) heart failure; Chest pain, unspecified. Bed requested for Telemetry/MedSurg (Inpatient). Status is Inpatient Admission. Condition is Stable. Problem is new. Symptoms have improved. 4 12:11 09:55 04/15/2020 05:33 Hospitalization Ordered by Derrick Miles MD for Inpatient eb Admission. Preliminary diagnosis is Unspecified combined systolic (congestive) and diastolic (congestive) heart failure; Chest pain, unspecified. Bed requested for [facility] ER HOLD. Status is Inpatient Admission. Condition is Stable. Problem is new. Symptoms have improved. ss 13:02 12:11 04/15/2020 05:33 Hospitalization Ordered by Derrick Miles MD for Inpatient ss Admission. Preliminary diagnosis is Unspecified combined systolic (congestive) and diastolic (congestive) heart failure; Chest pain, unspecified. Bed requested for Telemetry/MedSurg (Inpatient). Status is Inpatient Admission. Condition is Stable. Problem is new. Symptoms have improved. eb
--- NOTE | 2020-04-15 05:34 | ER ---
Nurse's Notes [facility] Name: Cecil Merrill Jr Age: 59 yrs Sex: Male : 1960 Arrival Date: 04/14/2020 Time: 23:56 Bed 4 Private MD: Derrick Miles V Diagnosis: Unspecified combined systolic (congestive) and diastolic (congestive) heart failure;Chest pain, unspecified Presentation: 04/15 00:24 Chief complaint: Patient states: went to work today "had and adrenaline anderson in his dm5 back", relaxed a little, it went away and he was able to continue and finish his work day. Got home from work had a salad with [place] and felt bloated and heavy in epigastric area, tried [place] with no relief, then he felt his heart beat in his temples, took blood pressure is was 200s/110s, took a bystolic around 2245 and 162mg aspirin extra for the day, BP stayed high, so he started to get concerned. He states he has been belching hard and passing gas, pt states he felt a little better after passing gas in the lobby but still concerned about blood pressure. Coronavirus screen: Client denies travel out of the [place] in the last 14 days. At this time, the client does not indicate any symptoms associated with coronavirus-19. Ebola Screen: Patient negative for fever greater than or equal to 101.5 degrees Fahrenheit, and additional compatible Ebola Virus Disease symptoms Patient denies exposure to infectious person. Patient denies travel to an Ebola-affected area in the 21 days before illness onset. No symptoms or risks identified at this time. Initial Sepsis Screen: Does the patient meet any 2 criteria? No. Patient's initial sepsis screen is negative. Does the patient have a suspected source of infection? No. Patient's initial sepsis screen is negative. Risk Assessment: Do you want to hurt yourself or someone else? Patient reports no desire to harm self or others. Onset of symptoms was April 04, 2020. 00:24 Acuity: KIMBER 2 dm5 00:24 Method Of Arrival: Ambulatory dm5 Historical: - Allergies: 00:30 No Known Allergies; dm5 - PMHx: 06:18 Myocardial infarction; Hypertension; Diabetes - NIDDM; ea - PSHx: 06:18 cardiac stents; ea - Immunization history:: Adult Immunizations up to date. - Social history:: Smoking status: unknown. Screenin:42 Abuse screen: Denies threats or abuse. Nutritional screening: No deficits noted. ea Tuberculosis screening: No symptoms or risk factors identified. Fall Risk None identified. Assessment: 00:42 General: Appears in no apparent distress. Behavior is calm, cooperative, appropriate ea for age. Pain: Complains of pain in chest. Neuro: Level of Consciousness is awake, alert, obeys commands, Oriented to person, place, time, situation. Cardiovascular: Patient's skin is warm and dry. Respiratory: Airway is patent Respiratory effort is even, unlabored, Respiratory pattern is regular, symmetrical, Breath sounds are clear bilaterally. Derm: Skin is pink, warm \\T\\ dry. 01:19 Reassessment: Patient and/or family updated on plan of care and expected duration. Pain ea level reassessed. Patient is alert, oriented x 3, equal unlabored respirations, skin warm/dry/pink. 02:05 Reassessment: Patient and/or family updated on plan of care and expected duration. Pain ea level reassessed. Patient is alert, oriented x 3, equal unlabored respirations, skin warm/dry/pink. 03:00 Reassessment: Patient and/or family updated on plan of care and expected duration. Pain ea level reassessed. Patient is alert, oriented x 3, equal unlabored respirations, skin warm/dry/pink. 04:38 Reassessment: Patient and/or family updated on plan of care and expected duration. Pain ea level reassessed. Patient is alert, oriented x 3, equal unlabored respirations, skin warm/dry/pink. Awaiting on covid results. 05:30 Reassessment: Patient and/or family updated on plan of care and expected duration. Pain ea level reassessed. Patient is alert, oriented x 3, equal unlabored respirations, skin warm/dry/pink. 06:17 Reassessment: Patient and/or family updated on plan of care and expected duration. Pain ea level reassessed. Patient is alert, oriented x 3, equal unlabored respirations, skin warm/dry/pink. Vital Signs: 00:43 BP 213 / 99; Pulse 71; Resp 19; Pulse Ox 97% on R/A; ea 01:18 BP 167 / 86; Pulse 66; Resp 18; Pulse Ox 99% ; ea 02:32 BP 177 / 105; Pulse 86; Resp 18; Pulse Ox 98% on R/A; ea 02:53 Temp 97.9; ea 04:38 BP 165 / 89; Pulse 66; Resp 18; Pulse Ox 97% on R/A; ea 05:13 BP 149 / 82; Pulse 64; Resp 18; Pulse Ox 98% on R/A; ea 07:54 BP 149 / 73; Pulse 62; Resp 22; Pulse Ox 95% ; sv 11:00 Weight 112 kg; Height 5 ft. 8 in. (172.72 cm); sv 11:00 Body Mass Index 37.54 (112.00 kg, 172.72 cm) sv ED Course: 04/14 23:56 Patient arrived in ED. am2 23:56 Derrick Miles MD is Private Physician. am2 04/15 00:08 Abhijeet Beauchamp MD is Attending Physician. tw4 00:26 Brooklynn Richards RN is Primary Nurse. ea 00:29 Triage completed. dm5 00:43 Patient has correct armband on for positive identification. Placed in gown. Bed in low ea position. Call light in reach. Side rails up X 1. clinical research monitor on. Pulse ox on. NIBP on. 00:43 Arm band placed on right wrist. Patient placed in an exam room, on a stretcher, on ea pulse oximetry. 00:50 Inserted saline lock: 20 gauge in right antecubital area, using aseptic technique. ds4 Blood collected. 01:26 Notified ED physician of a critical lab result(s). d-dimer 869. dm5 02:46 XRAY Chest (1 view) In Process Unspecified. EDMS 02:54 CT Chest For PE Angio In Process Unspecified. EDMS 05:30 No provider procedures requiring assistance completed. Patient admitted, IV remains in ea place. 05:32 Derrick Miles MD is Hospitalizing Provider. tw4 07:03 Primary Nurse role handed off by Brooklynn Richards, TREY eb 07:53 Erica Diaz, TREY is Primary Nurse. sv 07:55 COVID-19 Sent. sv Administered Medications: No medications were administered Outcome: 05:33 Decision to Hospitalize by Provider. tw4 06:18 Instructed on the need for admit, Demonstrated understanding of instructions, follow-up ea care, medications. 13:02 Patient left the ED. ss Signatures: Dispatcher [employer] Cheli Traore, RN RN Erica Rose RN Lissy Jimenez RN RN ss Eric Wilson ds4 Negar Flynn am2 Brooklynn Richards RN RN ea Wadley, Terrence, MD MD tw4 Peggy Gómez
[2020-04-15] MEDS ORDERED: D50W 25 GM/50 ML SYRINGE IV PRN (08:16)
[2020-04-15] MEDS ORDERED: GLUCAGON 1 MG/VIAL IM PRN (08:16)
--- NOTE | 2020-04-15 08:37 | RAD REPORT ---
EXAM DESCRIPTION: RAD - Chest Single View - 04/15/2020 2:46 am CLINICAL HISTORY: CHEST PAIN Chest pain. COMPARISON: Chest Single View dated 08/19/2019; Chest Single View dated 08/18/2019; CHEST SINGLE VIEW da odalys 01/16/2014; CHEST SINGLE VIEW dated 01/15/2014 FINDINGS: Portable technique limits examination quality. Mild interstitial pulmonary opacities are seen bilaterally. The heart is upper limit of normal in siz e. No displaced fractures.
[2020-04-15 08:54] LABS: Troponin I 0.14 ng/mL (0.0-0.045)
[2020-04-15 11:00] VITALS: BMI 37.5
[2020-04-15] MEDS: INSULIN -REGULAR HUMAN 50 UNIT/0.5 ML ML SQ SCH ×2 (11:19→16:29)
--- NOTE | 2020-04-15 11:44 | RAD REPORT ---
EXAM DESCRIPTION: Chest For Pe Angio CLINICAL HISTORY: CHEST PAIN COMPARISON: None Available. TECHNIQUE: CTA of the chest obtained following the uncomplicated intravenous administration of iodin ated contrast. 3-D/MIP reformatted images of the chest available for evaluation. FINDINGS: Chest: Pulmonary arteries: Contrast bolus is adequate.No filling defects identified in the pulmonary arterie s to suggest pulmonary embolus. Thyroid: No abnormalities of the visualized thyroid. Great Vessels: Great vessels have normal anatomic configuration. Thoracic Aorta: Atherosclerotic calcification of a normal caliber thoracic aorta. Heart: Cardiomegaly. Coronary artery atherosclerosis. No significant pericardial effusion. Lymph Nodes: No enlarged mediastinal lymph nodes identified. Esophagus: No abnormalities of the esophagus identified. Other: No additional findings. Lungs: Respiratory motion artifact. Scattered bilateral peripheral groundglass opacities. Pleura: No pleural effusion or pneumothorax. Trachea/Airways: No abnormalities of the visualized trachea or airways. Bones: Mild degenerative endplate spondylosis. Upper Abdomen: Limited images of the upper abdomen demonstrate no definite abnormalities of visualize d portions of the liver, gallbladder, pancreas, spleen, adrenal glands, or kidneys. IMPRESSION: 1. Scattered bilateral peripheral groundglass opacities. Commonly reported imaging featu res of viral pneumonia are present. Other processes such as influenza pneumonia and organizing pneumo kristal, as can be seen with drug toxicity and connective tissue disease, can cause a similar imaging pat tern. PneTyp Reference: https://pubs.rsna.org/doi/full/10.1148/ryct.7084853487 2. No pulmonary mass. 3. Cardiomegaly with coronary artery atherosclerosis. This exam was performed according to our departmental dose-optimization program, which includes autom ated exposure control, adjustment of the mA and/or kV according to patient size and/or use of iterati ve reconstruction technique. Electronically signed by: Darion Rivero 04/15/2020 3:24 AM FULFILLMENT SPECIALIST Due to temporary technical issues with the PACS/Fluency reporting system, reports are being signed by the in house radiologist without review as a courtesy to ensure prompt reporting. The interpreting r adiologist is fully responsible for the content of the report.
[2020-04-15] MEDS ORDERED: POTASSIUM CL SA 10 MEQ TAB PO ONE (11:48)
[2020-04-15] MEDS ORDERED: AMLODIPINE 10 MG TAB ONE (11:48)
[2020-04-15] MEDS ORDERED: FUROSEMIDE 40 MG TABLET ONE (11:48)
[2020-04-15] MEDS: NEBIVOLOL HCL 20 MG TABLET PO SCH ×2 (11:53→19:56)
[2020-04-15] MEDS: FUROSEMIDE 40 MG TABLET PO SCH (11:53)
[2020-04-15] MEDS: AMLODIPINE 10 MG TAB PO SCH (11:53)
[2020-04-15] MEDS: SERTRALINE HCL 50 MG TAB PO SCH (11:54)
[2020-04-15 17:22] LABS: CKMB Creatine Kinase MB 5.6 ng/mL (0.3-3.6); Troponin I 0.14 ng/mL (0.0-0.045)
[2020-04-15] MEDS ORDERED: ATORVASTATIN 40 MG TAB PO SCH (17:30)
[2020-04-15] MEDS ORDERED: CLOPIDOGREL 75 MG TABLET PO SCH (17:30)
[2020-04-15] MEDS ORDERED: cloNIDine HCL 0.1 MG TAB PO PRN (20:29)
--- NOTE | 2020-04-15 20:36 | P.SSS ---
Patient History Date of Service: 04/15/20 Reason for admission: BP WENT TOO HIGH History of Present Illness: MR. PHILLIPS HAS SEVERE AND REFRACTORY HYPERTENSION WITH DIABETS AND HISTORY OF CORONARY ARTERY DISEASE. HE COMES IN WITH BP OF 240 SYSTOLIC AND NO CHEST PAIN. HE WAS ADMITTED FOR MALIGNANT HYPERTENSION. HIS TROPONIN IS MILD HIGH. Allergies No Known Allergies Allergy (Verified 11/30/16 15:05) Home Medications: Amlodipine [Norvasc*] 10 mg PO DAILY 08/18/19 Atorvastatin Calcium 40 mg PO DAILY AFTER SUPPER 08/18/19 Clopidogrel Bisulfate [Plavix*] 75 mg PO DAILY AFTER SUPPER 08/18/19 Empagliflozin/Metformin HCl [Synjardy 12.5-1,000 mg Tablet] 1 tab PO DAILY 08/18/19 Nebivolol HCl [Bystolic*] 20 mg PO BID 08/18/19 Furosemide [Lasix] 40 mg PO DAILY #30 tab 08/19/19 Losartan Potassium 100 mg PO DAILY #30 tablet 08/19/19 Potassium Chloride 20 meq PO DAILY #30 tab.er.prt 08/19/19 Sertraline [Zoloft] 25 mg PO DAILY #30 tab 08/19/19 - Past Medical/Surgical History Diabetic: Yes -: HTN -: NIDDM -: [place] -: CAD -: Cardiac Stents - Family History Father -: Heart disease, Hypertension, Diabetes, Stroke, Cancer Notes: bladder cancer Mother -: Lung disease - Social History Smoking Status: Unknown if ever smoked Alcohol use: Yes CD- Drugs: No Caffeine use: No Review of Systems 10-point ROS is otherwise unremarkable Physical Examination - Vital Signs Temperature: 97.9 F Blood Pressure: 209/98 Pulse: 71 Respirations: 17 Pulse Ox (%): 98 - Physical Exam General: Mild distress, Obese HEENT: Atraumatic, PERRLA, Mucous membr. moist/pink, EOMI, Sclerae nonicteric Neck: Supple, 2+ carotid pulse no bruit, No LAD, Without JVD or thyroid abnormality Respiratory: Clear to auscultation bilaterally, Normal air movement Cardiovascular: Regular rate/rhythm, Normal S1 S2 Gastrointestinal: Normal bowel sounds, No tenderness Musculoskeletal: No tenderness Integumentary: No rashes Neurological: Normal gait, Normal speech, Normal strength at 5/5 x4 extr, Normal tone, Normal affect Lymphatics: No axilla or inguinal lymphadenopathy - Studies Laboratory Data (last 24 hrs) 04/15/20 00:50: PT 10.4, INR 0.88, APTT 29.7 04/15/20 00:50: WBC 7.6, Hgb 15.5, Hct 48.5, Plt Count 165 04/15/20 00:50: Sodium 141, Potassium 3.8, BUN 18, Creatinine 1.48 H, Glucose 182 H, Magnesium 2.5 H, Total Bilirubin 0.3, AST 53 H, ALT 55, Alkaline Phosphatase 96, Lipase 223 - Diagnosis (Problem(s)) (1) Malignant hypertension Current Visit: Yes Status: Acute Plan: I ADDED SPIRONOLACTONE AND HYDRALAZINE. STOPPED POTASSIUM AND LOSARTN TO AVOID HYERKALEMIA. IT IS POSSIBLE TO HAVE HIGH RENIN HYPERTENSION IT IS COMMON IN BLACK POPULATION. I WILL ORDER RENAL ARTERY DOPPLER AND 24 HOUR URINE TEST IF NEED. CONSULTED CARDIOLOGY BECAUSE OF BP AND MILD HIGH TROPONIN. (2) Diabetes mellitus with stage 2 chronic kidney disease Current Visit: Yes Status: Chronic Plan: LASIX ADDS TO CREATTIINE ELEVAION. WILL WATCH. (3) Coronary artery disease due to type 2 diabetes mellitus Current Visit: Yes Status: Chronic - Disposition Disposition: ROUTINE DISCHARGE
[2020-04-15] MEDS: HYDRALAZINE HCL 25 MG TABLET PO SCH (20:49)
[2020-04-15 22:40] VITALS: O2SAT 96
[2020-04-16 01:04] LABS: CKMB Creatine Kinase MB 4.7 ng/mL (0.3-3.6); Troponin I 0.16 ng/mL (0.0-0.045)
[2020-04-16] MEDS: INSULIN -REGULAR HUMAN 50 UNIT/0.5 ML ML SQ SCH (07:30)
[2020-04-16] MEDS ORDERED: INFLUENZA VACCINE (for 3y+) 0.5 ML DOSE IMVAC ONE (08:00)
[2020-04-16] MEDS: NEBIVOLOL HCL 20 MG TABLET PO SCH (08:51)
[2020-04-16] MEDS: HYDRALAZINE HCL 25 MG TABLET PO SCH (08:51)
[2020-04-16] MEDS: SERTRALINE HCL 50 MG TAB PO SCH (08:52)
[2020-04-16] MEDS: FUROSEMIDE 40 MG TABLET PO SCH (08:52)
[2020-04-16] MEDS: AMLODIPINE 10 MG TAB PO SCH (08:52)
[2020-04-16] MEDS ORDERED: SPIRONOLACTONE 25 MG TABLET PO SCH (09:00)
[2020-04-16] MEDS ORDERED: LOSARTAN POTASSIUM 50 MG TABLET PO SCH ×2 (09:00)
[2020-04-16] MEDS ORDERED: Empagliflozin/Metformin Hcl [Synjardy 12.5-1,000 Mg Tablet] PO SCH (09:00)
[2020-04-16] MEDS ORDERED: POTASSIUM CL SA 10 MEQ TAB PO SCH (09:00)
[2020-04-16 09:54] VITALS: BP 181/87; TEMP 97.4
--- NOTE | 2020-04-18 11:48 | CON ---
Date of Consultation: 04/16/2020 History Of Present Illness: Mr. Merrill is a 59-year-old black male with history of hypertension, diab etes, had a fairly normal catheterization not long ago. He came in with uncontrolled hypertension, s hortness of breath, EKG that showed some LVH, slightly abnormal troponin. Denied any PND, orthopnea, pedal edema, palpitations, or syncope. Denied any fever or chills. Past Medical History: As stated above. Allergies: NONE. Social History: Negative. Family History: Noncontributory. Medications: At home are supposed to be amlodipine, Lipitor, Plavix, Lasix, hydralazine, Bystolic, A ldactone, and Catapres. Dr. Miles and I have discussed his case and his present medical regimen is a greed upon. Review of Systems: Negative. Physical Examination: Vital Signs: When I saw him, his blood pressure was 180/87. His vital signs were otherwise stable. HEENT: Negative. Neck: Supple with no bruits. Chest: Clear to auscultation and percussion. Cardiac: Revealed regular rhythm and rate with an S4 gallops. No murmurs or rubs. Abdomen: Benign. Extremities: Revealed no clubbing, cyanosis, or edema. Diagnostic Data: Creatinine was 1.48. Chest x-ray is negative. EKG showed LVH. D-dimer is 869. T roponin is 0.16. BNP was 2268. Echocardiogram, which was done in December showed normal ejection f raction. LVH with and without any wall motion abnormalities. Heart catheterization in 2016 revealed minimal coronary artery disease. Catheterization which was done in August 2019 did not reveal any sign ificant coronary artery disease. No interventions were done either. Impression And Plan: 1.Poorly controlled hypertension. 2.Diabetes. 3.Moderate coronary artery disease. 4.Left ventricular hypertrophy. 5.Elevated D-dimer, elevated creatinine and elevated BNP and elevated troponin secondary to diastoli c congestive heart failure and renal insufficiency. I agree with his present regimen for now. I thi nk he can go home. He needs to lose weight, watch his salt intake. I would recommend doing a renal Doppler as an outpatient. YULIET/ALBERTO Voice ID: [id number] Report ID: [id number]
== END 2020-04-16 09:08 | disposition home or self-care (01) ==
LOC: ER 23:55 → ERHOLD 04-15 08:21 → 2ND 04-15 12:51
PROVIDERS: ADMIT Internal Medicine; ATTEND Internal Medicine
DX: I13.0 Hypertensive heart and chronic kidney disease with heart failure and stage 1 through stage 4 chronic kidney disease, or unspecified chronic kidney disease (principal); I50.30 Unspecified diastolic (congestive) heart failure; N18.2 Chronic kidney disease, stage 2 (mild); E11.22 Type 2 diabetes mellitus with diabetic chronic kidney disease; I25.10 Atherosclerotic heart disease of native coronary artery without angina pectoris; Z20.828 Contact with and (suspected) exposure to other viral communicable diseases; Z95.5 Presence of coronary angioplasty implant and graft; I25.2 Old myocardial infarction; R94.31 Abnormal electrocardiogram [ECG] [EKG]; Z79.02 Long term (current) use of antithrombotics/antiplatelets; R79.1 Abnormal coagulation profile
CPT/HCPCS: 93005; 87040 ×2; 85025; 80048; 36415 ×2; 83735; 82550 ×4; 85610; 82947 ×3; 85379; 80076; 85730; 81003; 84484 ×4; 82553 ×4; 83690; 83880; 71275; 71045; 99284; U0003; Q9967

== ENCOUNTER 2021-11-24 10:12 | Inpatient (IN) | payer SELFPAY ==
[2021-11-24] MEDS ORDERED: LORazepam 2 MG/ML VIAL ONE ×2 (10:34→11:55)
--- NOTE | 2021-11-24 10:55 | RAD REPORT ---
EXAM DESCRIPTION: CT - Ct Stroke Brain Wo Cont - 11/24/2021 10:40 am CLINICAL HISTORY: Neuro deficit, acute, stroke suspected COMPARISON: Neck Angio dated 11/24/2021; Head angio dated 11/24/2021 TECHNIQUE: Axial 5 millimeter thick images of the head were obtained without IV contrast. All CT scans are performed using dose optimization technique as appropriate and may include automated exposure control or mA/KV adjustment according to patient size. FINDINGS: No intracranial hemorrhage is present. No cortical based infarction seen. No cortical nolberto a or sulcal effacement identifiable. No significant atrophy changes are present. Advanced for age dim inished attenuation is seen in the bilateral cerebral white matter. There is a 20 x 10 mm area of dec reased attenuation in the right caudate lobe. There is enlargement of the frontal horn right lateral ventricle at this level supporting that this is a remote infarction. An acute component near the ronald in is not excluded. The pronounced chronic ischemic change in the cerebral right matter could mask no nhemorrhagic CVA. No mass effect, edema or shift of midline structures. Ventricles are otherwise norm al in size and shape. No extra-axial fluid collections. [place] matter-white matter differentiation is preserved. Visualized portions of the mastoid air cells, paranasal sinuses, and orbits are unremarkable. Findings telephoned to Dr Cruz 10:50 a.m. IMPRESSION: No intracranial hemorrhage is present. No definitive nonhemorrhagic infarctions seen. Patient has extensive cerebral white matter chronic is chemic change that can mask nonhemorrhagic CVA. 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 Acute nonhemorrhagic CVA along the margins of this old stroke would be possible as well. Follow-up MR imaging could be obtained as clinical findings warrant.
--- NOTE | 2021-11-24 10:57 | RAD REPORT ---
EXAM DESCRIPTION: CT - Head angio - 11/24/2021 10:40 am CLINICAL HISTORY: Neuro deficit, acute, stroke suspected TECHNIQUE: During dynamic enhancement using nonionic IV contrast, axial 1 millimeter thick images of the head were obtained. Sagittal and axial reconstruction images were generated using MIP technique and reviewed. All CT scans are performed using dose optimization technique as appropriate and may include automated exposure control or mA/KV adjustment according to patient size. COMPARISON: CT head same date FINDINGS: No aneurysm or vascular malformation identified. Major venous sinuses are patent. There is focal diminished perfusion in the area of the old basal ganglia/ head of the caudate CVA. Ot herwise there is no named branch occlusion, vasculitis or flow restricting stenosis identifiable. Rig ht posterior communicating artery variant is present. Distal most ICA bilateral atherosclerotic calci fications are present without significant luminal narrowing. IMPRESSION: Negative CT angio head examination for acute finding.
--- NOTE | 2021-11-24 10:59 | RAD REPORT ---
EXAM DESCRIPTION: CT - Neck Angio - 11/24/2021 10:40 am CLINICAL HISTORY: Neuro deficit, acute, stroke suspected TECHNIQUE: During dynamic enhancement using nonionic IV contrast, axial 2 mm thick images of the nec k were obtained. Sagittal and axial reconstruction images were generated using MIP technique and revi ewed. All CT scans are performed using dose optimization technique as appropriate and may include automated exposure control or mA/KV adjustment according to patient size. COMPARISON: CT head same date, CT angio head same date FINDINGS: No aneurysm or vascular malformation identified. No carotid or vertebral dissection. No aortic arch or great vessel origin abnormality seen. Vertebral artery origins unremarkable as well . No occlusion, flow restricting atherosclerotic change or vasculitis. Left vertebral artery is domin ant as a normal variant. No significant basilar artery finding. IMPRESSION: Negative CT angio neck examination for acute finding.
--- NOTE | 2021-11-24 11:07 | RAD REPORT ---
EXAM DESCRIPTION: RAD - Chest Single View - 11/24/2021 10:46 am CLINICAL HISTORY: CHEST PAIN COMPARISON: Portable 04/15/2020 TECHNIQUE: AP portable chest image was obtained 11/24/2021 10:46 am . FINDINGS: Lung volumes are low but otherwise clear. Interstitial pattern matches comparison. Heart a nd vasculature are normal. No measurable pleural effusion and no pneumothorax. No acute bony abnormal ity seen. No acute aortic findings suspected. IMPRESSION: No acute cardiopulmonary process. No significant change from comparison study.
[2021-11-24 11:11] LABS: Absolute Lymphocytes (CBC) 0.9 K/uL (0.7-4.9); Hematocrit 42.4 % (39.6-49.0); Lymphocytes % 16.1 % (15.3-44.8); MCV 83.5 fL (80-100); MPV 10.1 fL (7.6-11.3); RBC Red Blood Cell Count 5.08 M/uL (4.33-5.43)
[2021-11-24] MEDS ORDERED: NA CHLORIDE 0.9% 1,000 ML ONE (11:14)
[2021-11-24] MEDS ORDERED: NA CHLORIDE 0.9% 100 ML ONE ×2 (11:14→12:01)
[2021-11-24] MEDS ORDERED: KETAMINE HCL 500 MG/5 ML VIAL ONE (11:14)
--- NOTE | 2021-11-24 11:22 | ER ---
Nurse's Notes [facility] Name: Cecil Merrill Jr Age: 61 yrs Sex: Male : 1960 Arrival Date: 11/24/2021 Time: 10:15 Bed 18 Private MD: Diagnosis: Other seizures;Transient cerebral ischemic attack, unspecified Presentation: 11/24 10:15 Chief complaint: Patient states: pt presented to ED reporting left arm limp/weakness. butler unable to swallow. last well known 0600 this morning. pt is now complaint with blood pressure medication and insulin. Coronavirus screen: Vaccine status: Patient reports receiving the 2nd dose of the covid vaccine. Ebola Screen: Patient denies travel to an Ebola-affected area in the 21 days before illness onset. Initial Sepsis Screen: Does the patient meet any 2 criteria? No. Patient's initial sepsis screen is negative. Does the patient have a suspected source of infection? No. Patient's initial sepsis screen is negative. Risk Assessment: Do you want to hurt yourself or someone else? Patient reports no desire to harm self or others. Onset of symptoms was November 24, 2021. 10:15 Method Of Arrival: EMS: [facility] butler 10:15 Acuity: KIMBER 3 butler Triage Assessment: 10:18 General: Appears in no apparent distress. Behavior is calm, cooperative. Pain: Denies butler pain. Neuro: Level of Consciousness is awake, alert, obeys commands, Oriented to person, place, time, situation, Coding Coordinator are equal bilaterally Moves all extremities. Historical: - Allergies: 10:18 No Known Allergies; butler - PMHx: 10:18 Diabetes - NIDDM; Hypertension; Myocardial infarction; butler - Immunization history:: Adult Immunizations up to date. - Social history:: Smoking status: Patient denies any tobacco usage or history of. - Family history:: not pertinent. - Hospitalizations: : No recent hospitalization is reported. Screenin:21 Abuse screen: Denies threats or abuse. Denies injuries from another. Nutritional butler screening: No deficits noted. Tuberculosis screening: No symptoms or risk factors identified. Fall Risk None identified. 11:29 Patient has been NPO before screening. The patient is alert, able to follow commands. butler The patient is unable to swallow own secretions without drooling or the need for suction. Bedside swallow screening discontinued. Patient kept NPO until cleared by Speech Therapy or Physician. The patient failed the bedside swallow screening. The patient will be kept NPO until cleared by Speech Therapy or Physician. Provider notified of bedside swallow screening results: William Cruz MD. Assessment: 10:46 General: Appears in no apparent distress. Behavior is calm, cooperative. Pain: Denies butler pain. Neuro: Level of Consciousness is awake, alert, obeys commands, Oriented to person, place, Speech is normal. 11:28 Neuro: Seizure activity Seizure lasted approximately 1 minutes. Patient is post-ictal butler at this time. 11:39 Neuro: Seizure activity. butler 15:43 Reassessment:. butler Vital Signs: 10:15 BP 209 / 79; Pulse 75; Resp 17; Temp 98.6; Pulse Ox 98% on R/A; Weight 78.93 kg; Height butler 5 ft. 8 in. 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 butler 10:18 Triage completed. butler 10:18 Arm band placed on. butler 10:22 William Cruz MD is Attending Physician. rn 10:41 CT Stroke Brain w/o Contrast In Process Unspecified. EDMS 10:[address] In Process Unspecified. EDMS 10:[address] In Process Unspecified. EDMS 10:46 Danni Gutierrez, RN is Primary Nurse. butler 10:48 Stroke CXR 1 View In Process Unspecified. EDMS 10:48 Patient has correct armband on for positive identification. Bed in low position. butler 10:48 No provider procedures requiring assistance completed. Maintain EMS IV. Gauge \T\ site: butler 20grac. 11:21 Chris Lozano MD is Hospitalizing Provider. rn 12:02 accucheck done. [email or web address] 13:34 Straight cath inserted, using sterile technique, Specimen obtained. Returned clear zm yellow urine. Patient tolerated well. 13:36 ETOH Level Sent. butler 13:36 SARS-COV-2 Antigen Rapid Sent. butler 13:36 Troponin High Sensitivity Sent. butler 13:36 Urine Drug Screen Sent. butler Administered Medications: 11:03 Drug: Ativan (LORazepam) 1 mg Route: IVP; Site: right antecubital; butler 11:20 Follow up: Response: No adverse reaction butler 11:20 Drug: Keppra (levETIRAcetam) 1000 mg Route: IV; Rate: calculated rate; Site: right butler antecubital; 11:57 Follow up: IV Status: Completed infusion butler 11:20 Drug: NS 0.9% 1000 ml Route: IV; Rate: 1000 ml; Site: right antecubital; butler 12:05 Follow up: IV Status: Completed infusion butler 11:20 Drug: Ativan (LORazepam) 2 mg Route: IVP; Site: right antecubital; butler 15:38 Follow up: Response: No adverse reaction butler 11:57 Drug: Keppra (levETIRAcetam) 500 mg Route: IV; Rate: calculated rate; Site: right butler antecubital; 11:57 Follow up: IV Status: Completed infusion butler 12:06 Drug: Insulin Regular Human 10 units {Co-Signature: [email or web address] (Fe Mullen RN).} Route: butler Sub-Q; Site: right upper arm; 13:37 Follow up: Response: No adverse reaction butler 12:14 Drug: Insulin Regular Human 5 units {Co-Signature: [email or web address] (Cait Calvo RN).} Route: IVP; butler Site: right antecubital; 12:15 Follow up: Response: No adverse reaction butler 12:16 Drug: NS 0.9% 500 ml Route: IV; Rate: bolus; Site: right antecubital; butler 12:16 Follow up: IV Status: Completed infusion butler Medication: 10:46 VIS not applicable for this client. butler Outcome: 11:21 Decision to Hospitalize by Provider. rn 16:16 Patient left the ED. [email or web address] NIH Stroke Scale - NIH Stroke Score Date: 11/24/2021 Time: 10:21 Total Score = 0 1a. Level of Consciousness (LOC) - 0(Alert) 1b. Level of Consciousness (LOC) (Month \T\ Age) - 0(Both) 1c. LOC Commands (Open \T\ Closes Eyes/Him Specialist) - 0(Both) 2. Best Gaze (Lateral Gaze Paresis) - 0(Normal) 3. Visual Field Loss - 0(No visual loss) 4. Facial Palsy - 0(Normal) 5a. Left Arm: Motor (10-second hold) - 0(No drift) 5b. Right Arm: Motor (10-second hold) - 0(No drift) 6a. Left Leg: Motor (5-second hold - always test supine) - 0(No drift) 6b. Right Leg: Motor (5-second hold - always test supine) - 0(No drift) 7. Limb Ataxia (finger/nose \T\ heel/barrera - test with eyes open) - 0(Absent) 8. Sensory Loss (pinprick arms/legs/face) - 0(Normal) 9. Best Language: Aphasia (description/naming/reading) - 0(No aphasia) 10. Dysarthria (speech clarity - read or repeat words) - 0(Normal) 11. Extinction and Inattention (visual/tactile/auditory/spatial/personal) - 0(No abnormality) Initials: butler NIH Stroke Scale - NIH Stroke Score Date: 11/24/2021 Time: 10:41 Total Score = 0 1a. Level of Consciousness (LOC) - 0(Alert) 1b. Level of Consciousness (LOC) (Month \T\ Age) - 0(Both) 1c. LOC Commands (Open \T\ Closes Eyes/Him Specialist) - 0(Both) 2. Best Gaze (Lateral Gaze Paresis) - 0(Normal) 3. Visual Field Loss - 0(No visual loss) 4. Facial Palsy - 0(Normal) 5a. Left Arm: Motor (10-second hold) - 0(No drift) 5b. Right Arm: Motor (10-second hold) - 0(No drift) 6a. Left Leg: Motor (5-second hold - always test supine) - 0(No drift) 6b. Right Leg: Motor (5-second hold - always test supine) - 0(No drift) 7. Limb Ataxia (finger/nose \T\ heel/barrera - test with eyes open) - 0(Absent) 8. Sensory Loss (pinprick arms/legs/face) - 0(Normal) 9. Best Language: Aphasia (description/naming/reading) - 0(No aphasia) 10. Dysarthria (speech clarity - read or repeat words) - 0(Normal) 11. Extinction and Inattention (visual/tactile/auditory/spatial/personal) - 0(No abnormality) Initials: rn Signatures: Dispatcher [employer] EDWilliam Nunes MD MD rn Leal, Jahala, RN RN [email or web address] Salima-Stager, TREY Razo RN, Zaina zm Campbell, Kaitlyn [email or web address] Fe Mullen RN [email or web address] Cait Calvo RN [email or web address]
--- NOTE | 2021-11-24 11:22 | EDPHYS ---
Physician Documentation [facility] Name: Cecil Merrill Jr Age: 61 yrs Sex: Male : 1960 Arrival Date: 11/24/2021 Time: 10:15 Bed 18 Private MD: ED Physician William Cruz HPI: 11/24 10:41 This 61 yrs old Black Male presents to ER via EMS with complaints of facial droop, left rn arm weakness, seizure. 10:41 The patient presents to the emergency department with weakness of the left upper rn extremity, right side of the face. Onset: The symptoms/episode began/occurred this morning. Associated signs and symptoms: Pertinent positives: seizure, weakness, Pertinent negatives: fever, headache. Severity of symptoms: At their worst the symptoms were moderate in the emergency department the symptoms have improved. Current symptoms: Currently, the patient is not experiencing any symptoms. The patient has not experienced similar symptoms in the past. The patient has not recently seen a physician. Pt and report this AM noticed right facial droop, was drooling, left arm weakness, lasted approx 1 hour, now back to baseline. EMS dropped him off and shortly after initial evaluation, called to room for seizure, generalized, lasted < 1 minute, now postictal. NO hx of seizures. No head trauma. . Historical: - Allergies: 10:18 No Known Allergies; butler - PMHx: 10:18 Diabetes - NIDDM; Hypertension; Myocardial infarction; butler - Immunization history:: Adult Immunizations up to date. - Social history:: Smoking status: Patient denies any tobacco usage or history of. - Family history:: not pertinent. - Hospitalizations: : No recent hospitalization is reported. ROS: 10:41 Constitutional: Negative for fever, chills, and weight loss, Eyes: Negative for injury, rn pain, redness, and discharge, Neck: Negative for injury, pain, and swelling, Cardiovascular: Negative for chest pain, palpitations, and edema, Respiratory: Negative for shortness of breath, cough, wheezing, and pleuritic chest pain, Abdomen/GI: Negative for abdominal pain, nausea, vomiting, diarrhea, and constipation, Back: Negative for injury and pain, MS/Extremity: Negative for injury and deformity, Skin: Negative for injury, rash, and discoloration, Neuro: Negative for headache, numbness, tingling Exam: 10:41 Constitutional: This is a well developed, well nourished patient who is awake, alert, rn and in no acute distress. Head/Face: Normocephalic, atraumatic. Eyes: Pupils equal round and reactive to light, extra-ocular motions intact. Periorbital areas with no swelling, redness, or edema. Cardiovascular: Regular rate and rhythm. No pulse deficits. Respiratory: No increased work of breathing, no retractions or nasal flaring. Abdomen/GI: Soft, non-tender Skin: Warm, dry MS/ Extremity: Pulses equal, no cyanosis. Neurovascular intact. Full, normal range of motion. Equal circumference. Neuro: Awake and alert, GCS 15, oriented to person, place, time, and situation. Cranial nerves II-XII grossly intact. Motor strength 5/5 in all extremities. Sensory grossly intact. Cerebellar exam normal 13:16 ECG was reviewed by the Attending Physician. rn Vital Signs: 10:15 BP 209 / 79; Pulse 75; Resp 17; Temp 98.6; Pulse Ox 98% on R/A; Weight 78.93 kg; Height butler 5 ft. 8 in. (172.72 cm); 11:13 BP 163 / 85; Pulse 72; Resp 17; Pulse Ox 97% ; butler 11:39 BP 180 / 65; Pulse 62; Resp 16; Pulse Ox 97% on R/A; butler 12:16 BP 171 / 80; Pulse 99; Resp 18; Pulse Ox 97% on 2 lpm NC; butler 12:47 BP 158 / 96; Pulse 75; Resp 20; Pulse Ox 100% ; butler 13:43 BP 136 / 81; Pulse 73; Resp 20; Pulse Ox 100% ; butler 14:13 BP 136 / 84; Pulse 71; Resp 20; Pulse Ox 99% on 2 lpm NC; butler 10:15 Body Mass Index 26.46 (78.93 kg, 172.72 cm) butler NIH Stroke Scale Scores: 10:21 NIHSS Score: 0 butler 10:41 NIHSS Score: 0 rn MDM: 10:22 Patient medically screened. rn 11:19 Data reviewed: vital signs, nurses notes, lab test result(s), EKG, radiologic studies, rn CT scan, and as a result, I will admit patient. Counseling: I had a detailed discussion with the patient and/or guardian regarding: the historical points, exam findings, and any diagnostic results supporting the discharge/admit diagnosis, lab results, radiology results, the need for further work-up and treatment in the hospital. Response to treatment: the patient's symptoms have markedly improved after treatment, and as a result, I will admit patient. Admission orders: after a detailed discussion of the patient's condition and case, the admit orders are written by me. ED course: Pt possibly with seizure activity earlier and not TIA, now that had a seizure here. Either, way, back to baseline, not TNK candidate. NIH [address] head and head/neck angio neg. Will admit to Dr. Lozano for further eval and neuro consult.. 12:14 ED course: Pt with another seizure, keppra added to make 20mg/kg total now. . rn 12:33 ED course: Called Dr. Kay for consult, no answer, will try back again.. rn 12:57 ED course: Consulted with Dr. Kay, states will consult, if has another seizure rn recommends depakote.. 11/24 10:23 Order name: Basic Metabolic Panel; Complete Time: 12:12 rn 11/24 10:23 Order name: CBC with Diff; Complete Time: 11:17 rn 11/24 10:23 Order name: Protime (+inr); Complete Time: 14:26 11/24 10:23 Order name: Ptt, Activated; Complete Time: 14: 11/24 12:10 Order name: Glucose, Ancillary Testing; Complete Time: 12:12 EDWY 11/24 12:42 Order name: Glucose, Ancillary Testing; Complete Time: 14: EDWY 11/24 12:56 Order name: Urine Drug Screen; Complete Time: 14: rn 11/24 12:56 Order name: ETOH Level; Complete Time: 14: 11/24 13:15 Order name: SARS-COV-2 Antigen Rapid; Complete Time: 14: rn 11/24 13:16 Order name: Troponin High Sensitivity; Complete Time: 14: 11/24 13:34 Order name: Urine Dipstick-Ancillary; Complete Time: 14:26 EDWY 11/24 14:13 Order name: CBC with Automated Diff EDMS 11/24 14:13 Order name: CBC with Automated Diff EDMS 11/24 14:13 Order name: Comprehensive Metabolic Panel EDMS 11/24 10:23 Order name: CT Stroke Brain w/o Contrast; Complete Time: 11:09 rn 11/24 10:23 Order name: Stroke CXR 1 View; Complete Time: 11:09 rn 11/24 10:23 Order name: Head Angio CT; Complete Time: 11:09 rn 11/24 10:23 Order name: Neck Angio CT; Complete Time: 11:09 rn 11/24 14:13 Order name: Echo with Doppler EDMS 11/24 14:13 Order name: Comprehensive Metabolic Panel EDMS 11/24 14:13 Order name: Lipid Profile EDMS 11/24 14:13 Order name: Lipid Profile EDMS 11/24 14:13 Order name: Magnesium EDMS 11/24 14:14 Order name: Magnesium EDMS 11/24 14:14 Order name: Phosphorus EDMS 11/24 14:14 Order name: Phosphorus EDMS 11/24 14:14 Order name: Stroke Protocol EDMS 11/24 14:14 Order name: Stroke Protocol EDMS 11/24 14:17 Order name: Glucose, Ancillary Testing; Complete Time: 14:26 EDMS 11/24 10:23 Order name: EKG; Complete Time: 10:25 rn 11/24 10:23 Order name: Accucheck; Complete Time: 11:20 rn 11/24 10:23 Order name: Cardiac monitoring; Complete Time: 11:03 rn 11/24 10:23 Order name: EKG - Nurse/Tech; Complete Time: 11:03 rn 11/24 10:23 Order name: IV Saline Lock; Complete Time: 11:03 rn 11/24 10:23 Order name: Labs collected and sent; Complete Time: 11:03 rn 11/24 10:23 Order name: NPO; Complete Time: 11:03 rn 11/24 10:23 Order name: O2 Per Protocol; Complete Time: 11:03 rn 11/24 10:23 Order name: O2 Sat Monitoring; Complete Time: 11:03 rn 11/24 10:23 Order name: Stroke Swallow Screen; Complete Time: 11:03 rn 11/24 14:13 Order name: Physical Therapy Consult EDMS 11/24 14:13 Order name: Speech Therapy Consult EDMS 11/24 14:13 Order name: NPO EDMS 11/24 14:13 Order name: NPO EDMS 11/24 14:13 Order name: [place] LIN EC:16 Rate is 74 beats/min. Rhythm is regular. Left axis deviation noted. QRS is positive in rn lead I and negative in lead aVF. CO interval is normal. QRS interval is normal. QT interval is normal. No Q waves. T waves are Inverted in leads I, aVL, V4, V5, V6. No ST changes noted. Clinical impression: NSR w/ Non-specific ST/T Changes. Interpreted by me. Reviewed by me. Administered Medications: 11:03 Drug: Ativan (LORazepam) 1 mg Route: IVP; Site: right antecubital; butler 11:20 Follow up: Response: No adverse reaction butler 11:20 Drug: Keppra (levETIRAcetam) 1000 mg Route: IV; Rate: calculated rate; Site: right butler antecubital; 11:57 Follow up: IV Status: Completed infusion butler 11:20 Drug: NS 0.9% 1000 ml Route: IV; Rate: 1000 ml; Site: right antecubital; butler 12:05 Follow up: IV Status: Completed infusion butler 11:20 Drug: Ativan (LORazepam) 2 mg Route: IVP; Site: right antecubital; butler 15:38 Follow up: Response: No adverse reaction butler 11:57 Drug: Keppra (levETIRAcetam) 500 mg Route: IV; Rate: calculated rate; Site: right butler antecubital; 11:57 Follow up: IV Status: Completed infusion butler 12:06 Drug: Insulin Regular Human 10 units {Co-Signature: [email or web address] (Fe Mullen RN).} Route: butler Sub-Q; Site: right upper arm; 13:37 Follow up: Response: No adverse reaction butler 12:14 Drug: Insulin Regular Human 5 units {Co-Signature: jh5 (Cait Calvo RN).} Route: IVP; butler Site: right antecubital; 12:15 Follow up: Response: No adverse reaction butler 12:16 Drug: NS 0.9% 500 ml Route: IV; Rate: bolus; Site: right antecubital; butler 12:16 Follow up: IV Status: Completed infusion butler Disposition Summary: 11/24/21 11:21 Hospitalization Ordered Hospitalization Status: Inpatient Admission rn Provider: Lozano, Mohammad rn Condition: Stable rn Problem: new rn Symptoms: have improved rn Bed/Room Type: Standard rn Location: Intensive Care Unit(11/24/21 14:28) rn Room Assignment: 2-(11/24/21 15:09) bd Diagnosis - Other seizures rn - Transient cerebral ischemic attack, unspecified rn Forms: - Medication Reconciliation Form rn - SBAR form rn NIH Stroke Scale - NIH Stroke Score Date: 11/24/2021 Time: 10:21 Total Score = 0 1a. Level of Consciousness (LOC) - 0(Alert) 1b. Level of Consciousness (LOC) (Month \T\ Age) - 0(Both) 1c. LOC Commands (Open \T\ Closes Eyes/Appraisal Analyst) - 0(Both) 2. Best Gaze (Lateral Gaze Paresis) - 0(Normal) 3. Visual Field Loss - 0(No visual loss) 4. Facial Palsy - 0(Normal) 5a. Left Arm: Motor (10-second hold) - 0(No drift) 5b. Right Arm: Motor (10-second hold) - 0(No drift) 6a. Left Leg: Motor (5-second hold - always test supine) - 0(No drift) 6b. Right Leg: Motor (5-second hold - always test supine) - 0(No drift) 7. Limb Ataxia (finger/nose \T\ heel/barrera - test with eyes open) - 0(Absent) 8. Sensory Loss (pinprick arms/legs/face) - 0(Normal) 9. Best Language: Aphasia (description/naming/reading) - 0(No aphasia) 10. Dysarthria (speech clarity - read or repeat words) - 0(Normal) 11. Extinction and Inattention (visual/tactile/auditory/spatial/personal) - 0(No abnormality) Initials: butler NIH Stroke Scale - NIH Stroke Score Date: 11/24/2021 Time: 10:41 Total Score = 0 1a. Level of Consciousness (LOC) - 0(Alert) 1b. Level of Consciousness (LOC) (Month \T\ Age) - 0(Both) 1c. LOC Commands (Open \T\ Closes Eyes/Appraisal Analyst) - 0(Both) 2. Best Gaze (Lateral Gaze Paresis) - 0(Normal) 3. Visual Field Loss - 0(No visual loss) 4. Facial Palsy - 0(Normal) 5a. Left Arm: Motor (10-second hold) - 0(No drift) 5b. Right Arm: Motor (10-second hold) - 0(No drift) 6a. Left Leg: Motor (5-second hold - always test supine) - 0(No drift) 6b. Right Leg: Motor (5-second hold - always test supine) - 0(No drift) 7. Limb Ataxia (finger/nose \T\ heel/barrera - test with eyes open) - 0(Absent) 8. Sensory Loss (pinprick arms/legs/face) - 0(Normal) 9. Best Language: Aphasia (description/naming/reading) - 0(No aphasia) 10. Dysarthria (speech clarity - read or repeat words) - 0(Normal) 11. Extinction and Inattention (visual/tactile/auditory/spatial/personal) - 0(No abnormality) Initials: rn Signatures: Dispatcher [employer] EDMS Margarita Lantigua Roman, MD MD rn Au-ColbyrDanni RN RN butler Fe Mullen RN [email or web address] Cait Calvo RN jh5 Corrections: (The following items were deleted from the chart) 14:28 11:21 Telemetry/MedSurg (Inpatient) rn rn 14:28 11:21 rn noel 15:09 14:28 noel cohen
[2021-11-24 11:30] LABS: Potassium 4.1 mmol/L (3.5-5.1)
[2021-11-24] MEDS ORDERED: LEVETIRACETAM 500 MG/5 ML VIAL IV ONE ×2 (12:01→12:12)
[2021-11-24] MEDS ORDERED: INSULIN -REGULAR HUMAN 50 UNIT/0.5 ML ML ONE (12:08)
[2021-11-24] MEDS ORDERED: NA CHLORIDE 0.9% 500 ML ONE (12:21)
[2021-11-24 13:01] LABS: Protime INR 0.93
[2021-11-24 13:34] LABS: Urine Blood Trace-lysed (Negative); Urine Glucose 2+ (Negative); Urine Protein 2+ (Negative)
[2021-11-24 14:03] LABS: SARS-CoV-2 Antigen Rapid Res Negative (Negative)
[2021-11-24] MEDS ORDERED: ACETAMINOPHEN 500 MG TAB PO PRN (14:08)
[2021-11-24] MEDS ORDERED: ONDANSETRON 4 MG/2 ML VIAL IV PRN (14:08)
[2021-11-24 14:11] LABS: Barbiturates NEGATIVE (NEGATIVE); Benzodiazepines NEGATIVE (NEGATIVE); Cocaine NEGATIVE (NEGATIVE); METHAMPHETAM NEGATIVE (NEGATIVE); Methadone NEGATIVE (NEGATIVE); Opiates NEGATIVE (NEGATIVE); Phencyclidine NEGATIVE (NEGATIVE); THC Cannibis NEGATIVE (NEGATIVE)
[2021-11-24] MEDS: NA CHLORIDE 0.9% 1,000 ML IV SCH (17:37)
[2021-11-24] MEDS ORDERED: GLUCAGON 1 MG/VIAL IM PRN (18:01)
[2021-11-24] MEDS: ENOXAPARIN 40 MG/0.4 ML SQ SCH (18:05)
[2021-11-24] MEDS ORDERED: D10W 250 ML BAG IV PRN (18:06)
--- NOTE | 2021-11-24 18:24 | P.HP ---
Certification for Inpatient Patient admitted to: Inpatient With expected LOS: >2 Midnights Practitioner: I am a practitioner with admitting privileges, knowledge of patient current condition, hospital course, and medical plan of care. Services: Services provided to patient in accordance with Admission requirements found in Title 42 Section 412.3 of the Code of Federal Regulations Patient History Date of Service: 11/24/21 Reason for admission: SEIZURES History of Present Illness: 61 YEARS OLD GM WITH DM, HTN WHO IS NOT CONTROLLED. HE HAD EPISODE OF EYES ROLLING AND TWITTCHING FOLLOWED BY TONGUE BITE. THIS IS HIS FIRST SEIZURE. HE WAS LOADED WITH KEPPRA IN ER. HE IS STILL POST ICTAL. HE ALSO WAS GIVEN ATIVAN 3 MG. Allergies No Known Allergies Allergy (Verified 11/24/21 17:53) Home medications list reviewed: Yes Home Medications: Amlodipine [Norvasc*] 10 mg PO DAILY 08/18/19 Atorvastatin Calcium 40 mg PO DAILY AFTER SUPPER 08/18/19 Clopidogrel Bisulfate [Plavix*] 75 mg PO DAILY AFTER SUPPER 08/18/19 Empagliflozin/Metformin HCl [Synjardy 12.5-1,000 mg Tablet] 1 tab PO DAILY Nebivolol HCl [Bystolic*] 20 mg PO BID 08/18/19 Furosemide [Lasix*] 40 mg PO DAILY #30 tab 08/19/19 Sertraline [Zoloft*] 25 mg PO DAILY #30 tab 08/19/19 Hydralazine [Apresoline*] 25 mg PO TID #90 tab 04/16/20 Spironolactone [Aldactone*] 50 mg PO DAILY #90 tab 04/16/20 cloNIDine HCL [Catapres*] 0.1 mg PO Q2H PRN #50 tab 04/16/20 - Past Medical/Surgical History Has patient received pneumonia vaccine in the past: No Diabetic: Yes -: HTN -: NIDDM -: [place] -: CAD -: Cardiac Stents - Family History Father -: Heart disease, Hypertension, Diabetes, Stroke, Cancer Notes: bladder cancer Mother -: Lung disease - Social History Alcohol use: Yes CD- Drugs: No Caffeine use: No Review of Systems 10-point ROS is otherwise unremarkable General: Weakness Physical Examination - Vital Signs Temperature: 98.6 F Blood Pressure: 118/63 Pulse: 65 Respirations: 19 Pulse Ox (%): 100 - Physical Exam General: Mild distress, Unresponsive, Obese HEENT: Atraumatic, PERRLA, Mucous membr. moist/pink, EOMI, Sclerae nonicteric Neck: Supple, 2+ carotid pulse no bruit, No LAD, Without JVD or thyroid abnormality Respiratory: Clear to auscultation bilaterally, Normal air movement Cardiovascular: Regular rate/rhythm, Normal S1 S2 Gastrointestinal: Normal bowel sounds, No tenderness Musculoskeletal: No tenderness Integumentary: No rashes Neurological: Normal gait, Normal speech, Normal strength at 5/5 x4 extr, Normal tone, Normal affect Lymphatics: No axilla or inguinal lymphadenopathy - Studies Laboratory Data (last 24 hrs) 11/24/21 10:55: PT 10.2, INR 0.93, APTT 27.3 11/24/21 10:55: WBC 5.8, Hgb 14.2, Hct 42.4, Plt Count 142 L 11/24/21 10:55: Sodium 127 L, Potassium 4.1, BUN 18, Creatinine 1.50 H, Glucose 551 H* Assessment and Plan - Problems (Diagnosis) (1) Seizure disorder Current Visit: Yes Status: Acute Plan: FIRST EPISODE. I TALKED TO DR. MEMBRENO. ZABRINA DENNISON FOR NOW. MRI STROKE PROTOCOL IN AM TO BE DONE AFTER 8 AM. (2) HTN (hypertension) Current Visit: Yes Status: Chronic Plan: CONT MEDS. Qualifiers: Hypertension type: primary hypertension Qualified Code(s): I10 - Essential (primary) hypertension (3) Diabetes mellitus type 2 in obese Current Visit: Yes Status: Chronic Plan: DM AGGRESSIVE SLIDING SCALE. NOT WELL CONTROLLED. HIS LAST A1C IN OFFICE 6.2 IN JULY. (4) History of CVA (cerebrovascular accident) Current Visit: Yes Status: Chronic Plan: CT SHOWS OLD STROKE. MRI IN AM. - Advance Directives Does patient have a Living Will: No Does patient have a Durable POA for Healthcare: No
[2021-11-24] MEDS ORDERED: PNEUMOCOCCAL VACCINE 0.5 ML IMVAC ONE (20:00)
[2021-11-24] MEDS: ATORVASTATIN 80 MG TAB PO SCH (20:06)
[2021-11-24] MEDS: INSULIN -REGULAR HUMAN 50 UNIT/0.5 ML ML SQ SCH (21:00)
[2021-11-24] MEDS: levETIRAcetam 500 MG in NA CHLORIDE 0.9% 100 ML IV SCH (21:08)
[2021-11-25] MEDS: INSULIN -REGULAR HUMAN 50 UNIT/0.5 ML ML SQ SCH ×6 (02:11→20:31)
[2021-11-25 05:05] LABS: Absolute Lymphocytes (CBC) 1.8 K/uL (0.7-4.9); Hematocrit 41.5 % (39.6-49.0); Lymphocytes % 30.6 % (15.3-44.8); MCV 84.9 fL (80-100); MPV 9.9 fL (7.6-11.3); RBC Red Blood Cell Count 4.89 M/uL (4.33-5.43)
[2021-11-25 05:22] LABS: Albumin 2.7 g/dL (3.4-5.0); Bilirubin Total 0.3 mg/dL (0.2-1.0); Phosphorus 2.8 mg/dL (2.5-4.9); Potassium 3.8 mmol/L (3.5-5.1); Protein, Total 6.1 g/dL (6.4-8.2)
[2021-11-25 05:28] VITALS: BMI 34.0
[2021-11-25] MEDS: NA CHLORIDE 0.9% 1,000 ML IV SCH ×2 (05:33→17:40)
--- NOTE | 2021-11-25 08:09 | P.PN ---
Subjective Date of Service: 11/25/21 Chief Complaint: SEIZURES Subjective: Improving HE IS FULLY AWAKE NOW. HE SAYS BEFORE SEIZURES FOR 2 DAYS HE HAD NOISES IN EAR AND HE THOUGHT HIS WAS TALKING TO HIM. HEIS BACK TO BASELINE NOW. Review of Systems 10-point ROS is otherwise unremarkable Physical Examination - Vital Signs Temperature: 97.8 F Blood Pressure: 139/82 Pulse: 58 Respirations: 15 Pulse Ox (%): 99 - Physical Exam General: Alert, In no apparent distress HEENT: Atraumatic, PERRLA, EOMI Neck: Supple, JVD not distended Respiratory: Clear to auscultation bilaterally, Normal air movement Cardiovascular: Regular rate/rhythm, Normal S1 S2 Gastrointestinal: Normal bowel sounds, No tenderness Musculoskeletal: No tenderness Integumentary: No rashes Neurological: Normal speech, Normal tone, Normal affect Lymphatics: No axilla or inguinal lymphadenopathy - Studies Laboratory Data (last 24 hrs) 11/24/21 10:55: PT 10.2, INR 0.93, APTT 27.3 11/24/21 10:55: WBC 5.8, Hgb 14.2, Hct 42.4, Plt Count 142 L 11/24/21 10:55: Sodium 127 L, Potassium 4.1, BUN 18, Creatinine 1.50 H, Glucose 551 H* Medications List Reviewed: Yes Assessment And Plan - Current Problems (Diagnosis) (1) Seizure disorder Current Visit: Yes Status: Acute Plan: FIRST EPISODE. I TALKED TO DR. MEMBRENO. ZABRINA DENNISON FOR NOW. MRI STROKE PROTOCOL IN AM TO BE DONE AFTER 8 AM. MRI TODAY. STABLE. (2) HTN (hypertension) Current Visit: Yes Status: Chronic Plan: CONT MEDS. Qualifiers: Hypertension type: primary hypertension Qualified Code(s): I10 - Essential (primary) hypertension (3) Diabetes mellitus type 2 in obese Current Visit: Yes Status: Chronic Plan: DM AGGRESSIVE SLIDING SCALE. NOT WELL CONTROLLED. HIS LAST A1C IN OFFICE 6.2 IN JULY. (4) History of CVA (cerebrovascular accident) Current Visit: Yes Status: Chronic Plan: CT SHOWS OLD STROKE. MRI IN AM.
[2021-11-25] MEDS ORDERED: TAMSULOSIN 0.4 MG SR CAP PO ONE (08:15)
[2021-11-25] MEDS: ENOXAPARIN 40 MG/0.4 ML SQ SCH (08:41)
[2021-11-25] MEDS: levETIRAcetam 500 MG in NA CHLORIDE 0.9% 100 ML IV SCH ×2 (08:42→22:51)
[2021-11-25] MEDS ORDERED: CLOPIDOGREL 75 MG TABLET PO SCH (09:00)
--- NOTE | 2021-11-25 10:40 | EKG ---
Test Date: 2021-11-24 Test Time: 10:53:25 Hand Polisher: AUST MEASUREMENT RESULTS: Intervals: Rate: 74 NE: 148 QRSD: 94 QT: 424 QTc: 470 Emporium: P: 59 NE: 148 QRS: -32 T: 152 INTERPRETIVE STATEMENTS: Normal sinus rhythm Possible Left atrial enlargement Left axis deviation Left ventricular hypertrophy with repolarization abnormality Abnormal ECG Compared to ECG 04/15/2020 00:30:25 No significant changes Electronically Signed On 11-25-21 10:36:19 CDT by Darryl Cortez
[2021-11-25] MEDS ORDERED: LORazepam 2 MG/ML VIAL IV ONE (11:05)
--- NOTE | 2021-11-25 11:26 | ECHO ---
HEIGHT: 5 ft 7 in WEIGHT: 217 lb 6.4 oz DATE OF STUDY: 11/25/[address]: Chris Lozano MD 2-DIMENSIONAL: YES M.MODE: YES DOPPLER: YES COLOR FLOW: YES TDS: NO PORTABLE: YES DEFINITY: NO BUBBLE STUDY: NO DIAGNOSIS: STROKE CARDIAC HISTORY: CATHERIZATION:YES SURGERY: NO PROSTHETIC VALVE: NO PACEMAKER: NO MEASUREMENTS (cm) DIASTOLIC (NORMALS) SYSTOLIC (NORMALS) IVSd 1.3 (0.6-1.2) LA Diam 3.2 (1.9-4.0) LVEF 85% LVIDd 4.2 (3.5-5.7) LVIDs 1.9 (2.0-3.5) %FS 54% LVPWd 1.7 (0.6-1.2) Ao Diam 2.5 (2.0-3.7) 2 DIMENSIONAL ASSESSMENT: RIGHT ATRIUM: NORMAL LEFT ATRIUM: NORMAL RIGHT VENTRICLE: NORMAL LEFT VENTRICLE: SEVERE LEFT VENTRICULAR HYPERTROPHY TRICUSPID VALVE: NORMAL MITRAL VALVE: NORMAL PULMONIC VALVE: NORMAL AORTIC VALVE: NORMAL PERICARDIAL EFFUSION: NONE AORTIC ROOT: NORMAL LEFT VENTRICULAR WALL MOTION: HYPERDYNAMIC. DOPPLER/COLOR FLOW: NORMAL COMMENTS: CONCENTRIC SEVERE LEFT VENTRICULAR HYPERTROPHY. NORMAL LEFT VENTRICULAR EJECTION FRACTION, HYPERDYNAMIC. NO EFFUSION. NO THROMBUS OR VEGETATION. TECHNOLOGIST: Ciarra MOTA
[2021-11-25] MEDS: ASPIRIN EC 81 MG TAB PO SCH (12:18)
--- NOTE | 2021-11-25 12:27 | RAD REPORT ---
EXAM DESCRIPTION: MRI - MRA Neck W/Wo Cont - 11/25/2021 12:15 pm CLINICAL HISTORY: CVA COMPARISON: No comparisons FINDINGS: Contrast enhance 2D [id number] MR angiography of the neck vessels was performed. The bilateral carotid systems are widely patent. No stenosis or dissection. Left dominant vertebral a rtery. IMPRESSION: No flow limiting stenosis is present within the neck.
--- NOTE | 2021-11-25 12:33 | RAD REPORT ---
EXAM DESCRIPTION: MRI - MRA Head Wo Cont - 11/25/2021 12:15 pm CLINICAL HISTORY: CVA CVA COMPARISON: No comparisons FINDINGS: 3D noncontrast [id number] MR angiography of the [place] was performed. No aneurysm, flow-limiting stenosis or vascular malformation is seen. Forward flow seen in codominant vertebral arteries. The visualized dural venous sinuses appear patent. IMPRESSION: No significant flow abnormality of the [place] is identified.
--- NOTE | 2021-11-25 12:33 | RAD REPORT ---
EXAM DESCRIPTION: MRI - Brain W/Wo Cont - 11/25/2021 12:15 pm CLINICAL HISTORY: Stroke COMPARISON: Head CT dated 11/24/2021 TECHNIQUE: Sagittal and axial T1-weighted images were obtained. Axial PD/heavily T2-weighted and T2- FLAIR images were obtained along with axial DWI/ADC mapping sequences. Axial and coronal post-contras t T1-weighted images were also obtained. FINDINGS: No intracranial hemorrhage, mass or acute infarction. There is no edema or shift of midlin e structures. No extra-axial fluid collections. Signal voids are seen as a normal finding in the evelyn r intracranial vessels. Moderate chronic small vessel ischemic changes. Right caudate head infarct, portion of which is chron ic. Part of this enhances which is in keeping with a subacute infarct. Small acute cortical infarct i n the left parietal lobe with diffusion restriction. Mastoid air cells and paranasal sinuses are clear. IMPRESSION: 1. Punctate acute left parietal cortical infarct. 2. Combination of subacute and chronic right basal ganglia infarct.
[2021-11-25 16:09] VITALS: O2SAT 99
[2021-11-25] MEDS: ATORVASTATIN 80 MG TAB PO SCH (20:30)
[2021-11-25] MEDS ORDERED: HYDRALAZINE HCL 25 MG TABLET PO SCH (21:00)
[2021-11-26] MEDS: INSULIN -REGULAR HUMAN 50 UNIT/0.5 ML ML SQ SCH ×6 (01:00→19:53)
--- NOTE | 2021-11-26 01:13 | CON ---
Reason For Consultation: Consultation called because of stroke and seizures. History Of Present Illness: Mr. Merrill is a 61-year-old right-handed patient with un controlled diabetes mellitus, hypertension, primary cardiac infarction, coronary artery disease with cardiac stents who comes to [facility] with seizure like activity and transient right-sided weakness. The patient's was in the room. He developed sudden onset of right-sided weakness and shortly after apparently had a fall with eyes rolling, tongue biting and generalized shaking. At [facility], eventually had the second episode and was given Keppra 2 g load and put on 500 mg twice daily. His head CT scan in the emergency room did not show acute ischemic hemorrhagic stroke. However, the study was remarkable for extensive cerebral white matter chronic ischemic change. A chaidze bsequent brain MRI did identify 2 likely lacunar punctate acute infarcts in the left parietal cortex and actually a subacute infarct in the right head of the caudate along with moderate chronic small ve ssel ischemic disease and likely also another chronic infarct as part of the caudate. There was no h emorrhagic change. His head and neck magnetic resonance angiogram showed no significant findings. H is echocardiogram showed ejection fraction of 85% with concentric severe left ventricular hypertrophy . The patient was put on aspirin 160 mg daily, Plavix 75 mg daily, folic acid 1 mg daily along with Keppra as mentioned and Bystolic to keep his systolic less than 170. He was evaluated by Speech and cleared for swallowing. He was evaluated by Physical Therapy and was able to independently do stand and balance activities, don and doff clothes, and ambulate without an assistive device. Blood work s howed a normal complete blood count with differential and coagulation panel. Blood sugars range up t o 361 with normal liver function studies. LDL cholesterol 42, HDL 47. Urinalysis showed trace lysed blood and 2+ protein with 2+ glucose. Urine toxicology was negative. COVID-19 test was negative. His electrocardiogram showed sinus rhythm with left atrial enlargement. Past Medical History: As noted above. Allergies: NO KNOWN DRUG ALLERGIES. Medications: At home are Norvasc 10 mg daily, atorvastatin 40 mg at night, Plavix 75 mg daily. Metf ormin/empagliflozin 1000/12.5 daily, Bystolic 20 mg twice daily, Lasix 40 mg daily, Zoloft 25 mg tami y, apresoline 25 mg daily, Aldactone 50 mg daily, and Catapres 0.1 mg every 2 hours as needed. Family History: Lung disease in mother. Heart disease in father along with hypertension, diabetes, stroke, and cancer in father. Social History: Uses alcohol, but no tobacco or IV drug use. Review of Systems: He reports about a month ago right-sided weakness in the arm and legs, it was transient. He did not seek medical attention. Otherwise, negative on a 10 point systems review. Physical Examination: Vital Signs: Blood pressure 165/65, pulse 86, respiratory rate is 12-18, temperature afebrile at 97. 8, oxygen saturation 99% room air, pulse is 57-61. Weight 217 pounds, height 5 feet 7 inches, BMI 34 . General: Mr. Merrill is resting in bed. He is in no acute distress. HEENT: He is normocephalic, atraumatic. Sclerae anicteric. His oropharynx is pink and moist. Neck: Supple. Chest: Clear. Heart: Regular. Extremities: No clubbing, cyanosis, or edema. Neurological: He is alert and oriented to person, place, time, and situation. He has no cranial ner ve deficits. No focal motor or coordination deficits. He actually has very diminished reflexes to t race or absent really in the knees, heels and upper extremities. He has a stocking-glove loss to lig ht touch and temperature. Coordination intact. Gait is intact. Assessment: Mr. Merrill is a 61-year-old patient with uncontrolled diabetes and hypertension who had m yocardial infarction in the past, coronary artery disease, and severe left ventricular hypertrophy, l ikely due to chronic hypertension. He has multiple lacunar strokes resulting in significant brain at [facility]. His does note he has some episodes of memory loss, which may be due to his brain atrophy from the small vessel ischemic disease. Plan: 1.Aspirin, Plavix, folic acid, and statin. 2.Blood pressure should be much better controlled along with his diabetes mellitus as well. 3.He may be discharged home, but follow up in Dr. Kay's clinic within a month. NEDA/ALBERTO Voice ID: [id number] Report ID: [id number]
[2021-11-26] MEDS: NA CHLORIDE 0.9% 1,000 ML IV SCH (06:43)
--- NOTE | 2021-11-26 07:14 | EEG ---
CHART: [id number] TEST ID#: [id number] DATE OF STUDY: 11-25-2021 THE EEG WAS RECORDED PORTABLE IN THE PATIENT'S ROOM ON A 17 CHANNEL MACHINE. ELECTRODES WERE APPLIED IN THE USUAL MANNER USING THE INTERNATIONAL 10-20 SYSTEM. THE WAKING BACKGROUND RHYTHM IN THIS RECORD CONSISTS OF FAIRLY WELL DEVELOPED AND FAIRLY WELL ORGANIZED WAVES OF 9 HZ., MAXIMAL IN THE POSTERIOR HEAD REGIONS WHICH ATTENUATE NORMALLY WITH EYE OPENING. LOW-VOLTAGE 18-22 HZ ACTIVITY IS EXPRESSED IN THE FRONTAL REGIONS. THERE ARE NO FOCAL OR LATERALIZING FEATURES. NO EPILEPTIFORM ACTIVITY APPEARS. SLEEP DID OCCUR. HYPERVENTILATION WAS NOT PERFORMED. PHOTIC STIMULATION PRODUCED NO DRIVING BILATERALLY. IMPRESSION: NORMAL EEG FOR THE AGE OF THE PATIENT IN [place].
[2021-11-26] MEDS ORDERED: HOME MED 1 EA UNK (Insulin Degludec [Tresiba Flextouch U-100] 100 UNIT/ML Insuln.Pen) SQ SCH (07:30)
[2021-11-26] MEDS: ENOXAPARIN 40 MG/0.4 ML SQ SCH (07:53)
[2021-11-26] MEDS: ASPIRIN EC 81 MG TAB PO SCH (07:54)
[2021-11-26 07:56] LABS: Albumin 2.9 g/dL (3.4-5.0); Bilirubin Total 0.4 mg/dL (0.2-1.0); Magnesium 1.8 mg/dL (1.8-2.4); Phosphorus 2.2 mg/dL (2.5-4.9); Potassium 3.9 mmol/L (3.5-5.1); Protein, Total 6.5 g/dL (6.4-8.2)
[2021-11-26] MEDS ORDERED: SERTRALINE HCL 100 MG TAB PO SCH (09:00)
[2021-11-26] MEDS ORDERED: METFORMIN PO SCH (09:00)
[2021-11-26] MEDS ORDERED: FOLIC ACID 1 MG TABLET PO SCH (09:00)
[2021-11-26] MEDS ORDERED: EMPAGLIFLOZIN PO SCH (09:00)
[2021-11-26] MEDS ORDERED: NEBIVOLOL HCL 20 MG TABLET PO SCH ×2 (09:00)
[2021-11-26] MEDS: levETIRAcetam 500 MG in NA CHLORIDE 0.9% 100 ML IV SCH (09:00)
[2021-11-26] MEDS ORDERED: SPIRONOLACTONE 25 MG TABLET PO SCH (09:00)
[2021-11-26] MEDS ORDERED: HYDRALAZINE HCL 25 MG TABLET PO SCH ×2 (09:00)
[2021-11-26] MEDS: levETIRAcetam 500 MG TAB PO SCH ×2 (10:11→19:52)
[2021-11-26] MEDS ORDERED: AMIODARONE HCL 200 MG TAB PO SCH (11:34)
[2021-11-26] MEDS: HYDRALAZINE HCL 25 MG TABLET PO SCH ×2 (11:52→19:52)
[2021-11-26] MEDS ORDERED: INSULIN GLARGINE 100 UNIT/ML SQ SCH (17:00)
[2021-11-26] MEDS ORDERED: ATORVASTATIN 40 MG TAB PO SCH (17:30)
[2021-11-26] MEDS ORDERED: CLOPIDOGREL 75 MG TABLET PO SCH (17:30)
[2021-11-26] MEDS ORDERED: cloNIDine HCL 0.1 MG TAB PO ONE (19:00)
[2021-11-26 19:43] VITALS: BP 167/91; TEMP 97.7
[2021-11-26] MEDS: ATORVASTATIN 80 MG TAB PO SCH (19:52)
--- NOTE | 2021-11-26 20:45 | P.DS ---
Admission Date: 11/24/21 Discharge Date: 11/26/21 Disposition: ROUTINE DISCHARGE Reason for Admission: SEIZURES - Problems (1) Seizure disorder Current Visit: Yes Status: Acute (2) HTN (hypertension) Current Visit: Yes Status: Chronic Qualifiers: Hypertension type: primary hypertension Qualified Code(s): I10 - Essential (primary) hypertension (3) Diabetes mellitus type 2 in obese Current Visit: Yes Status: Chronic (4) History of CVA (cerebrovascular accident) Current Visit: Yes Status: Chronic Brief History of Present Illness: 61 YEARS OLD GM WITH DM, HTN WHO IS NOT CONTROLLED. HE HAD EPISODE OF EYES ROLLING AND TWITTCHING FOLLOWED BY TONGUE BITE. THIS IS HIS FIRST SEIZURE. HE WAS LOADED WITH KEPPRA IN ER. HE IS STILL POST ICTAL. HE ALSO WAS GIVEN ATIVAN 3 MG. Hospital Course: WILY IS A DIABETIC WITH HTN WHO HAD AUDITORY HALLUCINATIONS FOLLOWED BY SEIZURE EPISODE. HE ON MRI HAS NEW L PARIETAL STROKE. HE HAS LOST HIS JOB AND MAY NOT BE TAKING MEDS WELL HIS A1C RAISED FROM 6.2 TO 11 WITHIN A FEW MONTHS. HE WAS GIVEN KEPPRA IV FOLLOWED BY KEPPRA PO. HE IS STABLE TO GO HOME. BP WENT HIGHER WITH ANTICIPATION AND ANXIETY. HE WILL BE BETTER AT HOME. I WILL FU IN ONE WEEK. Vital Signs/Physical Exam: Temp Pulse Resp BP Pulse Ox 97.7 F 70 16 167/91 H 98 11/26/21 19:42 11/26/21 19:42 11/26/21 19:42 11/26/21 19:42 11/26/21 19:42 Laboratory Data at Discharge: WBC 5.8 K/uL (4.3-10.9) 11/25/21 04:41 Hgb 13.8 g/dL (13.6-17.9) 11/25/21 04:41 Hct 41.5 % (39.6-49.0) 11/25/21 04:41 Plt Count 134 K/uL (152-406) L 11/25/21 04:41 PT 10.2 SECONDS (9.5-12.5) 11/24/21 10:55 INR 0.93 11/24/21 10:55 APTT 27.3 SECONDS (24.3-36.9) 11/24/21 10:55 Sodium 139 mmol/L (136-145) 11/26/21 07:20 Potassium 3.9 mmol/L (3.5-5.1) 11/26/21 07:20 BUN 11 mg/dL (7-18) 11/26/21 07:20 Creatinine 0.98 mg/dL (0.55-1.3) 11/26/21 07:20 Glucose 158 mg/dL (74-106) H 11/26/21 07:20 Phosphorus 2.2 mg/dL (2.5-4.9) L 11/26/21 07:20 Magnesium 1.8 mg/dL (1.8-2.4) 11/26/21 07:20 Total Bilirubin 0.4 mg/dL (0.2-1.0) 11/26/21 07:20 AST 20 U/L (15-37) 11/26/21 07:20 ALT 18 U/L (12-78) 11/26/21 07:20 Alkaline Phosphatase 67 U/L (45-117) 11/26/21 07:20 Triglycerides 120 mg/dL (<150) 11/25/21 04:41 Cholesterol 113 mg/dL (<200) 11/25/21 04:41 HDL Cholesterol 47 mg/dL (40-60) 11/25/21 04:41 Cholesterol/HDL Ratio 2.40 11/25/21 04:41 Home Medications: Atorvastatin Calcium [Lipitor] 80 mg PO BEDTIME #30 tab 11/26/21 Clopidogrel Bisulfate [Plavix*] 75 mg PO DAILY AFTER SUPPER #30 11/26/21 Empagliflozin/Metformin HCl [Synjardy 12.5-1,000 mg Tablet] 1 tab PO DAILY #30 11/26/21 Hydralazine [Apresoline*] 100 mg PO TID #360 tab 11/26/21 Insulin Glargine,Hum.rec.anlog [Toujose Solostar] 35 unit SQ DAILY AT SUPPER 30 Days 11/26/21 Nebivolol HCl [Bystolic*] 20 mg PO DAILY #30 11/26/21 Sertraline [Zoloft*] 100 mg PO DAILY 30 Days #30 tab 11/26/21 Spironolactone [Aldactone*] 50 mg PO DAILY #30 tab 11/26/21 levETIRAcetam [Keppra*] 500 mg PO BID #60 tab 11/26/21 New Medications: Spironolactone [Aldactone*] 50 mg PO DAILY #30 tab Hydralazine [Apresoline*] 100 mg PO TID #360 tab Nebivolol HCl [Bystolic*] 20 mg PO DAILY #30 levETIRAcetam [Keppra*] 500 mg PO BID #60 tab Atorvastatin Calcium [Lipitor] 80 mg PO BEDTIME #30 tab Clopidogrel Bisulfate [Plavix*] 75 mg PO DAILY AFTER SUPPER #30 Empagliflozin/Metformin HCl [Synjardy 12.5-1,000 mg Tablet] 1 tab PO DAILY #30 Insulin Glargine,Hum.rec.anlog [Toujeo Solostar] 35 unit SQ DAILY AT SUPPER 30 Days Sertraline [Zoloft*] 100 mg PO DAILY 30 Days #30 tab Physician Discharge Instructions: PROBLEM: Stroke/TIA GOAL: Clear understanding of disease process INSTRUCTIONS: Increase Hydralazine 100 mg TID, increase Insulin to 35 units. Monitor and record BP twice a day and monitor blood sugars.Continue with Keppra as prescribed for seizure prevention. Follow up with Dr Kay in 1 month, f/u with Dr Miles in 2 weeks call for appointment. Diet: 1800 ADA diet Activity: As tolerated DME DME: Date Ordered: Name of Company: [employer] Services Needed: None Name of Company: Date or Referral: IMMUNIZATION Influenza Vaccine Indicated: Influenza Vaccine Given: Date Given: Pneumonia Vaccine Indicated: No Pneumonia Vaccine Given: Date Given: Followup: Amrit Kay MD [ASSOCIATE-ACTIVE - CAN ADMIT] - Derrick Miles MD [Primary Care Provider] -
[2021-11-28 22:20] LABS: PSA FREE 0.48 ng/mL
[2021-12-03] MEDS ORDERED: AMIODARONE HCL 200 MG TAB PO SCH (09:00)
== END 2021-11-26 20:07 | disposition home or self-care (01) | DRG 65 ==
LOC: ER 10:12 → ERHOLD 14:09 → 3RD-ICU 16:10 → OBSVTOIN 21:04
PROVIDERS: ADMIT Internal Medicine; ATTEND Internal Medicine
DX: I63.9 Cerebral infarction, unspecified (principal); G81.91 Hemiplegia, unspecified affecting right dominant side; I25.10 Atherosclerotic heart disease of native coronary artery without angina pectoris; G31.9 Degenerative disease of nervous system, unspecified; G40.909 Epilepsy, unspecified, not intractable, without status epilepticus; F41.9 Anxiety disorder, unspecified; I10 Essential (primary) hypertension; E11.65 Type 2 diabetes mellitus with hyperglycemia; E66.9 Obesity, unspecified; Z68.34 Body mass index [BMI] 34.0-34.9, adult; Z95.5 Presence of coronary angioplasty implant and graft; Z86.73 Personal history of transient ischemic attack (TIA), and cerebral infarction without residual deficits; Z20.822 Contact with and (suspected) exposure to COVID-19
CPT/HCPCS: 36415; 51702; 70450; 70496; 70498; 70544; 70549; 70553; 71045; 80048; 80053; 80061; 80177; 80307; 80320; 81003; 82565; 82947; 83036; 83735; 84100; 84153; 84154; 84484; 85025; 85610; 85730; 87811; 92610; 93005; 93306; 95816; 96365; 96372; 96375; 97110; 97161; 99284; A9577; G0378; J1650; J1815; J1953; J7030; J7040; Q9967